=== PATIENT | male | born 1955 | race Caucasian/White ===

== ENCOUNTER 2016-08-30 12:30 | Outpatient (RCR) | payer MEDICARE, MEDICAID ==
[~2016-08-30 12:30] MED LIST: ACYCLOVIR400 MG ORAL; ASPIR 8181 MG ORAL; BACLOFEN10 MG ORAL; BARACLUDE0.5 MG ORAL; CLOPIDOGREL75 MG ORAL; ENALAPRIL MALEA10 MG ORAL; GENVOYA TABLET1 EACH PO; SINEMET CR 50/201 EA ORAL; TRIHEXYPHENIDYL2 MG ORAL
== END 2016-09-06 | disposition home or self-care (01) ==
LOC: PTY 12:30
DX: G20 Parkinson's disease (principal)

== ENCOUNTER 2016-09-30 12:30 | Outpatient (RCR) | payer MEDICARE, MEDICAID | END 2016-10-04 | disposition home or self-care (01) | LOC: PTY 12:30 | DX: G20 Parkinson's disease (principal); R13.12 Dysphagia, oropharyngeal phase; I10 Essential (primary) hypertension; Z86.73 Personal history of transient ischemic attack (TIA), and cerebral infarction without residual deficits; Z91.81 History of falling ==

== ENCOUNTER 2016-10-17 13:24 | Outpatient (RCR) | payer MEDICARE, MEDICAID | END 2016-11-04 | disposition home or self-care (01) | LOC: PTY 13:24 | DX: G20 Parkinson's disease (principal); Z91.81 History of falling; I10 Essential (primary) hypertension; Z86.73 Personal history of transient ischemic attack (TIA), and cerebral infarction without residual deficits; R13.12 Dysphagia, oropharyngeal phase; Z88.8 Allergy status to other drugs, medicaments and biological substances ==

== ENCOUNTER 2017-02-09 12:00 | Outpatient (RCR) | payer MEDICARE, MEDICAID | END 2017-03-06 | disposition home or self-care (01) | LOC: PTY 12:00 | DX: G20 Parkinson's disease (principal); Z91.81 History of falling; I10 Essential (primary) hypertension; Z86.73 Personal history of transient ischemic attack (TIA), and cerebral infarction without residual deficits; R47.1 Dysarthria and anarthria | CPT/HCPCS: 92507; 92523; 97110; 97162; G8978; G8979; G8996; G8997 ==

== ENCOUNTER → 2017-04-06 | Outpatient (RCR) | payer MEDICARE, MEDICAID | END | disposition home or self-care (01) | LOC: PTY 03-09 12:30 → STH 03-23 13:45 → PTY 03-30 12:29 | DX: G20 Parkinson's disease (principal); Z91.81 History of falling; I10 Essential (primary) hypertension; Z86.73 Personal history of transient ischemic attack (TIA), and cerebral infarction without residual deficits; R47.1 Dysarthria and anarthria | CPT/HCPCS: 92507; 97110; G9158; G9186 ==

== ENCOUNTER 2017-05-04 13:58 | Outpatient (RCR) | payer MEDICARE, MEDICAID | END 2017-05-06 | disposition home or self-care (01) | LOC: PTY 13:58 | DX: G20 Parkinson's disease (principal); R13.12 Dysphagia, oropharyngeal phase; R26.89 Other abnormalities of gait and mobility; Z91.81 History of falling | CPT/HCPCS: 97110; G8978; G8979 ==

== ENCOUNTER 2017-05-25 13:50 | Outpatient (RCR) | payer MEDICARE, MEDICAID | END 2017-06-06 | disposition home or self-care (01) | LOC: PTY 13:50 | DX: G20 Parkinson's disease (principal); R47.1 Dysarthria and anarthria; Z86.73 Personal history of transient ischemic attack (TIA), and cerebral infarction without residual deficits; I10 Essential (primary) hypertension; B20 Human immunodeficiency virus [HIV] disease ==

== ENCOUNTER 2017-07-05 14:15 | Outpatient (RCR) | payer MEDICARE, MEDICAID | END 2017-07-06 | disposition home or self-care (01) | LOC: PTY 14:15 | DX: G20 Parkinson's disease (principal); R47.1 Dysarthria and anarthria; I10 Essential (primary) hypertension; Z86.73 Personal history of transient ischemic attack (TIA), and cerebral infarction without residual deficits; H46.9 Unspecified optic neuritis ==

== ENCOUNTER 2017-07-27 13:00 | Outpatient (RCR) | payer MEDICARE, MEDICAID | END 2017-08-06 | disposition home or self-care (01) | LOC: PTY 13:00 | DX: G20 Parkinson's disease (principal) ==

== ENCOUNTER 2017-08-17 13:00 | Outpatient (RCR) | payer MEDICARE, MEDICAID | END 2017-09-06 | disposition home or self-care (01) | LOC: PTY 13:00 | DX: G20 Parkinson's disease (principal) | CPT/HCPCS: 97110; G8978; G8979 ==

== ENCOUNTER 2017-09-21 13:30 | Outpatient (RCR) | payer MEDICARE, MEDICAID | END 2017-10-04 | disposition home or self-care (01) | LOC: PTY 13:30 | DX: G20 Parkinson's disease (principal) ==

== ENCOUNTER 2017-10-20 14:45 | Outpatient (RCR) | payer MEDICAID, MEDICARE | END 2017-11-04 | disposition home or self-care (01) | LOC: PTY 14:45 | DX: G20 Parkinson's disease (principal) ==

== ENCOUNTER 2017-11-09 12:50 | Outpatient (RCR) | payer MEDICARE | END 2017-12-04 | disposition home or self-care (01) | LOC: PTY 12:50 | DX: G20 Parkinson's disease (principal) | CPT/HCPCS: 97110; G8978; G8979 ==

== ENCOUNTER 2017-12-14 12:07 | Outpatient (RCR) | payer MEDICARE, MEDICAID ==
[2017-12-26] MEDS ORDERED: SINEMET 25-1001 EAC1 ORAL ×2 (13:04→13:14)
== END 2018-01-04 | disposition home or self-care (01) ==
LOC: PTY 12:07
DX: G20 Parkinson's disease (principal)
CPT/HCPCS: 97110; G8978; G8979

== ENCOUNTER 2017-12-26 12:40 | Emergency (ER) | payer MEDICARE, MEDICAID ==
[~2017-12-26] VITALS: Ht 165.1 cm; Wt 59.0 kg
[2017-12-26 12:59] VITALS: BP 130/86
[2017-12-26] MEDS ORDERED: SINEMET 25-1001 EAC1 ORAL ×2 (13:04→13:14)
--- NOTE | 2017-12-26 13:17 | Emergency Room Report ---
History of Present Illness General Chief Complaint: Medication Refill Source: Patient, Caregiver Present Illness HPI 62-year-old male patient presents to ER brought in by photographer news for medication refill. Patient reports history of Parkinson's disease, currently taking carbidopa/levodopa 250 mg 2 tablets 3 times a day. patient reports has not been taking medication for the past 5 days because his prescription ran out. Patient reports that he has a follow-up appointment with his primary care provider on the of this month. Was unable to be seen earlier by primary care provider. Denies other acute complaints. Denies fever, chest pain, shortness breath, abdominal pain. Reports resting tremor has worsened during this time. Allergies: Coded Allergies: ABACAVIR (Verified Allergy, Unknown, ZIAGEN, 05/31/16) EFAVIRENZ (Verified Allergy, Unknown, SUSTIVA, 05/31/16) Patient History Past Medical History: see triage record Reviewed Nursing Documentation: PMH: Agreed; PSxH: Agreed Nursing Documentation-PMH Hx Cardiac Problems: No - HIV+ Hx Cancer: No Hx Gastrointestinal Problems: No Hx Neurological Problems: Yes - parkinsons Hx Cerebrovascular Accident: Yes - in 2014 Review of Systems All Other Systems: negative except mentioned in HPI Physical Exam Vital Signs Date Time Temp Pulse Resp B/P (MAP) Pulse Ox O2 Delivery O2 Flow Rate FiO2 12/26/17 12:59 98.4 101 19 130/86 96 Room Air 98.4 Sp02 EP Interpretation: reviewed, normal General Appearance: well appearing, no apparent distress, alert, GCS 15, non- toxic, other - resting tremor Head: normocephalic, atraumatic Eyes: bilateral eye normal inspection, bilateral eye PERRL ENT: hearing grossly normal, normal pharynx, no angioedema, normal voice, uvula midline, moist mucus membranes Neck: full range of motion Respiratory: lungs clear, normal breath sounds, no rhonchi, no respiratory distress, no accessory muscle use, no wheezing, speaking full sentences Cardiovascular #1: regular rate, rhythm, no edema Gastrointestinal: non tender, soft, no mass, non-distended, no guarding, no rebound Medical Decision Making PA Attestation Dr. Collins is my supervising Physician whom patient management has been discussed with. Diagnostic Impression: Primary Impression: Encounter for medication refill ER Course Pt. presents to the ED requesting prescription refill. Multiple differentials were considered. Vital signs: are WNL, pt. is afebrile ORDERS: PE benign, lungs clear to auscultation, no tenderness to palpation of the abdomen. patient denies acute complaints at this time. consult Dr. Collins, will provide medication refill for patient at this time. Informed patient ER does not normally provide refills of medications, needs follow-up with PCP as scheduled appointment. Will provide enough medication until appointment in 9 days. ER precautions given. do not believe patient is a danger to himself or others at this time. Informed patient ER cannot provide refills in the future; followup, management and prescription of long-term medications must be performed by primary care provider. patient observed ambulating independently in the ER. Patient discharged home in care of friend. DISCHARGE: Rx provided for carbidopa-Levodopa 25-100, take 2 tablets by mouth TID At this time pt is stable for d/c to home. Patient is resting comfortably, in no acute distress, nontoxic appearing, talking without difficulty. Patient to take medications as instructed Will provide with patient care instructions and any necessary prescriptions. Care plan and follow-up instructions provided. Patient instructed to follow-up with primary care provider in 3 - 5 days. Patient questions asked and answered. Patient reports understanding and agreement to treatment plan. ER precautions given. Patient instructed to return to ER immediately for any new or worsening of symptoms including but not limited to increasing SOB, persistent fever. - Please note that this Emergency Department Report was dictated using [employer] management assistant technology software, occasionally this can lead to erroneous entry secondary to interpretation by the dictation equipment. Last Vital Signs Date Time Temp Pulse Resp B/P (MAP) Pulse Ox O2 Delivery O2 Flow Rate FiO2 12/26/17 12:59 98.4 101 19 130/86 96 Room Air 98.4 Disposition: HOME, SELF-CARE Condition: Stable Scripts Carbidopa/Levodopa 25-100 Mg* (SINEMET 25-100 MG TABLET*) 1 Each Tablet 2 TAB ORAL THREE TIMES A DAY, #60 TAB Prov: Torres Neumann 12/26/17 Patient Instructions: Medicine Refill at the Emergency Department Additional Instructions: Followup with primary care provider at scheduled appointment. Take medications as directed. Patient advised ER does not normally provide prescription refills, follow-up with primary care provider. Patient questions asked and answered. ER precautions given, patient instructed to return to ER immediately for any new or worsening of symptoms. Torres Neumann December 26, 2017 13:17
[2017-12-26 13:20] VITALS: BP 130/86
== END 2017-12-26 14:07 | disposition home or self-care (01) ==
LOC: EMR 13:22
DX: Z76.0 Encounter for issue of repeat prescription (principal); G20 Parkinson's disease; Z88.8 Allergy status to other drugs, medicaments and biological substances; Z86.73 Personal history of transient ischemic attack (TIA), and cerebral infarction without residual deficits
CPT/HCPCS: 99283

== ENCOUNTER 2018-01-18 12:30 | Outpatient (RCR) | payer MEDICARE, MEDICAID ==
[~2018-01-18 12:30] MED LIST changes: +SINEMET 25-1001 EAC1 ORAL
== END 2018-02-03 | disposition home or self-care (01) ==
LOC: PTY 12:30
DX: G20 Parkinson's disease (principal)

== ENCOUNTER 2018-02-16 12:30 | Outpatient (RCR) | payer MEDICARE, MEDICAID | END 2018-03-06 | disposition home or self-care (01) | LOC: PTY 12:30 | DX: G20 Parkinson's disease (principal); I10 Essential (primary) hypertension; Z86.73 Personal history of transient ischemic attack (TIA), and cerebral infarction without residual deficits ==

== ENCOUNTER 2018-03-08 13:00 | Outpatient (RCR) | payer MEDICARE, MEDICAID | END 2018-04-06 | disposition home or self-care (01) | LOC: PTY 13:00 | DX: G20 Parkinson's disease (principal); I10 Essential (primary) hypertension; Z86.73 Personal history of transient ischemic attack (TIA), and cerebral infarction without residual deficits | CPT/HCPCS: 97110; G8978; G8979 ==

== ENCOUNTER 2018-04-12 13:07 | Outpatient (RCR) | payer MEDICARE, MEDICAID | END 2018-05-06 | disposition home or self-care (01) | LOC: PTY 13:07 | DX: G20 Parkinson's disease (principal) ==

== ENCOUNTER 2018-05-10 12:30 | Outpatient (RCR) | payer MEDICARE, MEDICAID | END 2018-06-06 | disposition home or self-care (01) | LOC: PTY 12:30 | DX: G20 Parkinson's disease (principal); I10 Essential (primary) hypertension; Z86.73 Personal history of transient ischemic attack (TIA), and cerebral infarction without residual deficits | CPT/HCPCS: 97110; G8979; G8980 ==

== ENCOUNTER 2019-10-30 23:27 | Emergency (ER) | payer MEDICAID, MEDICARE ==
[~2019-10-30] VITALS: Ht 162.6 cm; Wt 56.7 kg
[2019-10-30 23:47] VITALS: BP 142/88
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
[2019-10-30] MEDS ORDERED: FENOFIBRATE54 MG ORAL (23:56)
--- NOTE | 2019-10-31 00:05 | NUR ---
ED Nurse Note: IV line established. Blood and urine specimen collected and sent to lab.
--- NOTE | 2019-10-31 00:13 | Emergency Room Report ---
History of Present Illness General Chief Complaint: General Complaint Present Illness HPI Patient is a 64-year-old male who presents after increased difficulty with urination as well as dry mouth. Patient reportedly had been unable to take his medications several days ago. He had recently gotten refills of these. He reports have increased thirst and increased weakness. Denies fever. No vomiting. Allergies: Coded Allergies: ABACAVIR (Verified Allergy, Unknown, ZIAGEN, 05/31/16) EFAVIRENZ (Verified Allergy, Unknown, SUSTIVA, 05/31/16) COVID-19 Screening Contact w/high risk pt: No Recent Travel to affected area: No Experienced COVID-19 symptoms?: No Patient History Past Medical History: see triage record, CVA/TIA, HIV Reviewed Nursing Documentation: PMH: Agreed; PSxH: Agreed Nursing Documentation-PMH Hx Cardiac Problems: No - HIV+ Hx Cancer: No Hx Gastrointestinal Problems: No Hx Neurological Problems: Yes - parkinsons Hx Cerebrovascular Accident: Yes - in 2014 Review of Systems All Other Systems: negative except mentioned in HPI Physical Exam Vital Signs Date Time Temp Pulse Resp B/P (MAP) Pulse Ox O2 Delivery O2 Flow Rate FiO2 10/30/19 23:33 97.9 115 18 152/104 (120) 95 Room Air Sp02 EP Interpretation: reviewed, normal General Appearance: alert, GCS 15, Chronically Ill Head: atraumatic ENT: normal ENT inspection, hearing grossly normal, normal voice Neck: normal inspection, full range of motion, supple, no bony tend Respiratory: normal inspection, lungs clear, normal breath sounds, no respiratory distress, no retraction, no wheezing Cardiovascular #1: regular rate, rhythm, no edema Gastrointestinal: normal inspection, normal bowel sounds, non tender, soft, no guarding, no hernia Genitourinary: no CVA tenderness Musculoskeletal: normal inspection, back normal, normal range of motion Neurologic: alert, script manager III-XII nml as tested, oriented x3, responsive, normal inspection, other - slow speech Psychiatric: normal inspection, judgement/insight normal, mood/affect normal, other Medical Decision Making Diagnostic Impression: Primary Impression: HIV (human immunodeficiency virus infection) Additional Impressions: parkinsonson disease, advanced Dehydration ER Course Patient presented after increased lethargy. Differential diagnosis include was not limited to anemia, dehydration, medication reaction among others. Because of complexity of patient's case laboratory tests and imaging studies were ordered. Patient's laboratory testing was unremarkable. He was given IV Ativan. Patient was noted to have gradual improvement over time. Patient was noted to be stable for discharge and was currently in possession of his medications. travel services professional consult was obtained. Patient will be discharged. Labs Test 10/30/19 23:58 White Blood Count 8.9 K/UL (4.8-10.8) Red Blood Count 4.67 M/UL (4.70-6.10) Hemoglobin 14.2 G/DL (14.2-18.0) Hematocrit 41.2 % (42.0-52.0) Mean Corpuscular Volume 88 FL (80-99) Mean Corpuscular Hemoglobin 30.5 PG (27.0-31.0) Mean Corpuscular Hemoglobin Concent 34.5 G/DL (32.0-36.0) Red Cell Distribution Width 12.6 % (11.6-14.8) Platelet Count 366 K/UL (150-450) Mean Platelet Volume 5.1 FL (6.5-10.1) Neutrophils (%) (Auto) 58.9 % (45.0-75.0) Lymphocytes (%) (Auto) 29.0 % (20.0-45.0) Monocytes (%) (Auto) 8.8 % (1.0-10.0) Eosinophils (%) (Auto) 2.8 % (0.0-3.0) Basophils (%) (Auto) 0.5 % (0.0-2.0) Urine Color Yellow Urine Appearance Clear Urine pH 5 (4.5-8.0) Urine Specific [place] 1.025 (1.005-1.035) Urine Protein 2+ (NEGATIVE) Urine Glucose (UA) Negative (NEGATIVE) Urine Ketones 1+ (NEGATIVE) Urine Blood Negative (NEGATIVE) Urine Nitrite Negative (NEGATIVE) Urine Bilirubin 1+ (NEGATIVE) Urine Ictotest Negative (NEGATIVE) Urine Urobilinogen 1 MG/DL (0.0-1.0) Urine Leukocyte Esterase 1+ (NEGATIVE) Urine RBC 0-2 /HPF (0 - 0) Urine WBC 0-2 /HPF (0 - 0) Urine Squamous Epithelial Cells Few /LPF (NONE/OCC) Urine Bacteria Few /HPF (NONE) Sodium Level 145 MMOL/L (136-145) Potassium Level 3.6 MMOL/L (3.5-5.1) Chloride Level 106 MMOL/L (98-107) Carbon Dioxide Level 23 MMOL/L (21-32) Anion Gap 16 mmol/L (5-15) Blood Urea Nitrogen 22 mg/dL (7-18) Creatinine 1.2 MG/DL (0.55-1.30) Estimat Glomerular Filtration Rate > 60 mL/min (>60) Glucose Level 146 MG/DL (74-106) Calcium Level 9.1 MG/DL (8.5-10.1) Total Bilirubin 0.4 MG/DL (0.2-1.0) Aspartate Amino Transf (AST/SGOT) 16 U/L (15-37) Alanine Aminotransferase (ALT/SGPT) 12 U/L (12-78) Alkaline Phosphatase 51 U/L (46-116) Total Creatine Kinase 61 U/L (26-308) Total Protein 8.1 G/DL (6.4-8.2) Albumin 3.9 G/DL (3.4-5.0) Globulin 4.2 g/dL Albumin/Globulin Ratio 0.9 (1.0-2.7) Serum Alcohol < 3 mg/dL EKG Diagnostic Results Rate: normal Rhythm: NSR Last Vital Signs Date Time Temp Pulse Resp B/P (MAP) Pulse Ox O2 Delivery O2 Flow Rate FiO2 10/30/19 23:33 97.9 115 18 152/104 (120) 95 Room Air Status: improved Disposition: HOME, SELF-CARE Condition: Stable Referrals: NON PHYSICIAN (PCP) Morris Collins MD Oct 31, 2019 00:13
[2019-10-31 00:15] LABS: BASOPHILS % (AUTO) 0.5 % (0.0-2.0); EOSINOPHILS % (AUTO) 2.8 % (0.0-3.0); HEMATOCRIT 41.2 % (42.0-52.0); HEMOGLOBIN 14.2 G/DL (14.2-18.0); MEAN CORPUSCULAR VOLUME 88 FL (80-99); MONOCYTES % (AUTO) 8.8 % (1.0-10.0); NEUTROPHILS % (AUTO) 58.9 % (45.0-75.0); PLATELET COUNT 366 K/UL (150-450); RED BLOOD COUNT 4.67 M/UL (4.70-6.10); RED CELL DISTRIBUTION WIDTH 12.6 % (11.6-14.8); WHITE BLOOD COUNT 8.9 K/UL (4.8-10.8)
[2019-10-31] MEDS ORDERED: LORazepam Inj 2mg/ml 1ml IV ONE (00:15)
[2019-10-31 00:19] LABS: APPEARANCE,URINE CLEAR; BILIRUBIN, URINE 1+ (NEGATIVE); GLUCOSE, URINE (UA) NEGATIVE (NEGATIVE); KETONES,URINE 1+ (NEGATIVE); LEUKOCYTE ESTERASE ,URINE 1+ (NEGATIVE); NITRITE,URINE NEGATIVE (NEGATIVE); PH,URINE 5 (4.5-8.0); PROTEIN,URINE 2+ (NEGATIVE); UROBILINOGEN,URINE 1 MG/DL (0.0-1.0)
[2019-10-31 00:26] LABS: ANION GAP 16 mmol/L (5-15); BLOOD UREA NITROGEN 22 mg/dL (7-18); CALCIUM 9.1 MG/DL (8.5-10.1); CARBON DIOXIDE 23 MMOL/L (21-32); CHLORIDE 106 MMOL/L (98-107); CREATININE 1.2 MG/DL (0.55-1.30); POTASSIUM 3.6 MMOL/L (3.5-5.1); SODIUM 145 MMOL/L (136-145)
[2019-10-31 00:32] LABS: ALANINE AMINOTRANSFERASE 12 U/L (12-78); ALBUMIN 3.9 G/DL (3.4-5.0); ALBUMIN/GLOBULIN RATIO 0.9 (1.0-2.7); ALKALINE PHOSPHATASE 51 U/L (46-116); ASPARTATE AMINO TRANSFERASE 16 U/L (15-37); BILIRUBIN,TOTAL 0.4 MG/DL (0.2-1.0); COLOR,URINE YELLOW; CREATINE KINASE 61 U/L (26-308)
[2019-10-31 01:00] VITALS: BP 120/69
[2019-10-31 03:00] VITALS: BP 125/77
[2019-10-31 05:00] VITALS: BP 121/72
--- NOTE | 2019-10-31 05:49 | NUR ---
ED Nurse Note: Patient was requesting to see a case management social worker.
--- NOTE | 2019-10-31 07:02 | NUR ---
ED Nurse Note: Report received from YARITZA Brown. Pt sleeping comfortably in bed with no signs of distress. vitals stable as documented. Respirations even and unlabored on room air.
--- NOTE | 2019-10-31 07:50 | NUR ---
ED Nurse Note: SW @ bedside
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
--- NOTE | 2019-10-31 09:19 | NUR ---
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
--- NOTE | 2019-10-31 10:21 | NUR ---
ED Nurse Note: ATTEMPTED TO CALL PT.'S FRIENDS TO PICK HIM UP BUT NO ANSWER. HEEL SEAT LASTER GAVE HIM RESOURCES
[2019-10-31 11:00] VITALS: BP 124/85
--- NOTE | 2019-10-31 11:00 | NUR ---
ER DISCHARGE NOTE: Patient is cleared to be discharged per ERMD, pt is aox4, on room air, with stable vital signs. pt was given dc and prescription instructions, pt was able to verbalize understanding, pt id band and iv site removed without complications. pt is able to ambulate with steady gait. pt took all belongings. [facility] and pt. was provided tap card. pt. was assisted by CHEO Holt to the bus stop. no s/s of acute distress noted
== END 2019-10-31 11:00 | disposition home or self-care (01) ==
LOC: EMR 23:58
DX: R53.1 Weakness (principal); G20 Parkinson's disease; E86.0 Dehydration; Z21 Asymptomatic human immunodeficiency virus [HIV] infection status; Z86.73 Personal history of transient ischemic attack (TIA), and cerebral infarction without residual deficits; Z88.8 Allergy status to other drugs, medicaments and biological substances
CPT/HCPCS: 36415; 80053; 81001; 82550; 85025; 96361; 96374; 99284; G0480; J7030

== ENCOUNTER 2019-10-31 11:58 | Inpatient (IN) | payer MEDICARE, MEDICAID ==
[~2019-10-31] VITALS: Ht 165.1 cm; Wt 55.6 kg
[~2019-10-31 11:58] MED LIST changes: +FENOFIBRATE54 MG ORAL
[2019-10-31 12:12] VITALS: BP 141/99
--- NOTE | 2019-10-31 12:14 | Emergency Room Report ---
History of Present Illness General Chief Complaint: Fall Source: Patient Present Illness HPI Disclaimer: Please note that this report is being documented using [employer] technology. This can lead to erroneous entry secondary to incorrect interpretation by the dictating instrument. HPI: 64-year-old male history of parkinsonism, HIV presents for evaluation after a fall. Patient was seen in the emergency department earlier this morning by the previous provider. Originally came in for medication refill then noted weakness and was requesting placement. He was value by social work and discharge planning and given resources to follow-up on an outpatient basis. He left the emergency department was waiting for a bus however he stated that he was returning to check in again feeling weak. On his way back he states he had a fall from standing causing him to fall onto his left side. He is noting an abrasion over the left elbow and pain there as well as an abrasion over the left hinduism. He denies loss of consciousness or seizure. Not taking any blood thinners. States tetanus was updated last month. He notes he is unable to care himself and requesting placement. PMH: Parkinsonism, HIV PSH: Reviewed in chart Allergies: See chart Social Hx: Denies Allergies: Coded Allergies: ABACAVIR (Verified Allergy, Unknown, ZIAGEN, 05/31/16) EFAVIRENZ (Verified Allergy, Unknown, SUSTIVA, 05/31/16) COVID-19 Screening Contact w/high risk pt: No Recent Travel to affected area: No Experienced COVID-19 symptoms?: No Nursing Documentation-PMH Hx Cardiac Problems: No - HIV+ Hx Cancer: No Hx Gastrointestinal Problems: No Hx Neurological Problems: Yes - parkinsons Hx Cerebrovascular Accident: Yes - in 2014 Review of Systems All Other Systems: negative except mentioned in HPI Physical Exam General: Awake and alert, no acute distress HEENT: Normocephalic, abrasion over the right hinduism. Small hematoma. No tenderness or soft tissue swelling over the facial bones. EOMI. PERRLA. No septal hematoma. No oral lacerations. Dentition is intact. No malocclusion Neck: Supple, trachea midline. Arrives without cervical collar Chest Wall: No tenderness, no deformity, no crepitus CV: RRR. S1 and S2 normal. No murmur appreciated Resp: Normal work of breathing. No cough, wheezing or crackles appreciated Abd: Soft, nontender, nondistended Skin: Right hinduism abrasion and small hematoma. Abrasion of the left forearm is hemostatic. MSK: Normal tone and bulk. No obvious deformity. Arms held in contracture. Ambulates with use of walker Neuro: Awake and alert. Mentating appropriately. Arms held in contracture Medical Decision Making Diagnostic Impression: Primary Impression: Frequent falls Additional Impressions: Multiple injuries due to trauma Weakness ER Course 64-year-old male presents for fall with head injury but no loss of consciousness. Patient was seen earlier in the emergency department labs were largely unremarkable. He was complaining of weakness and requesting placement. Will obtain a CT scan of the head to rule out intracranial injury and a x-ray of the left elbow to evaluate for fracture. Tetanus was updated last month according to patient. Does not require repeat labs as we have the previous results from this morning. He will require admission. Other X-Ray Diagnostic Results Other X-Ray Diagnostic Results : X-Ray ordered: Left elbow # of Views/Limited Vs Complete: Complete Indication: Pain EP Interpretation: Yes Interpretation: no dislocation, no soft tissue swelling, no fractures Impression: No acute disease Electronically Signed by: Electronically signed by Dr. Jv Gallegos CT/MRI/US Diagnostic Results CT/MRI/US Diagnostic Results : Impression CT Head Impression: No acute intracranial bleed, mass effect or edema. Old lacunar infarcts bilateral basal ganglia. Mild atrophy of the brain. Nonspecific white matter hypoattenuation probably due to chronic small vessel disease. Reevaluation Impression No acute findings on head CT. No evidence of fracture or dislocation on elbow x -rays. Patient will be admitted to panel physician for evaluation and further treatment of his weakness, and inability to ambulate safely. Disposition: ADMITTED INPATIENT Condition: Serious Jv Gallegos MD Oct 31, 2019 12:14
--- NOTE | 2019-10-31 13:06 | Diagnostic Imaging Report ---
Indication: Headache. Head trauma Technique: Contiguous 5 mm thick transaxial imaging of the head obtained in a Siemens Sensation [address] scanner. Soft tissue and bone windows generated. Automatic Exposure Control was utilized. Total Dose length Product (DLP): 2171.1mGycm CT Dose Index Volume (CTDIvol): 106.8 mGy Comparison: 03/11/2016 Findings: There is mild prominence of the ventricles, basal cisterns, and cerebral sulci consistent with atrophy. Mild, nonspecific, white matter hypoattenuation is noted throughout the brain consistent with chronic small vessel disease. There are small cystic foci within the basal ganglia bilaterally consistent with old lacunar infarcts. There is no midline shift, edema, acute hemorrhage, mass effect, or abnormal extra-axial fluid collections. Bones are unremarkable. Impression: No acute intracranial bleed, mass effect or edema. Old lacunar infarcts bilateral basal ganglia. Mild atrophy of the brain. Nonspecific white matter hypoattenuation probably due to chronic small vessel disease. The CT scanner at [facility] is accredited by the [employer] and the scans are performed using dose optimization techniques as appropriate to a performed exam including Automatic Exposure control.
--- NOTE | 2019-10-31 13:08 | Diagnostic Imaging Report ---
Indication: Left elbow pain Findings: 3 views of the left elbow were obtained. No acute fractures, malalignment, erosions or periostitis are identified. There is mild posterior soft tissue swelling. There is no joint effusion appreciated. Generalized osteopenia noted. Impression: No acute injury
[2019-10-31] MEDS ORDERED: Zolpidem 5mg tab ORAL PRN (13:45)
[2019-10-31] MEDS ORDERED: Miralax 17gm pkt ORAL PRN (13:45)
[2019-10-31 14:02] VITALS: BP 137/80
--- NOTE | 2019-10-31 14:36 | Consultation ---
History of Present Illness General Date patient seen: Oct 31, 2019 Chief Complaint: Multiple Trauma/Fall Present Illness HPI 64-year-old male history of parkinsonism, HIV presented with CC of multiple falls. He had a fall from standing causing him to fall onto his left side. He has an abrasion over the left elbow and pain there as well as an abrasion over the left scientology. he is unable to care himself and requesting placement. Allergies: Coded Allergies: ABACAVIR (Verified Allergy, Unknown, ZIAGEN, 05/31/16) EFAVIRENZ (Verified Allergy, Unknown, SUSTIVA, 05/31/16) Medication History Scheduled Acyclovir* (Acyclovir*), 800 MG ORAL DAILY, (Reported) Aspirin* (Aspir 81*), 81 MG ORAL DAILY, (Reported) Baclofen* (Baclofen*), 10 MG ORAL EVERY 8 HOURS, (Reported) Carbidopa/Levodopa 25-100 Mg* (Sinemet 25-100 Mg Tablet*), 2 TAB ORAL THREE TIMES A DAY Clopidogrel* (Clopidogrel*), 75 MG ORAL DAILY, (Reported) Elviteg/Lesley/Emtric/Tenofo Ala (Genvoya Tablet), 1 EACH PO DAILY, (Reported) Enalapril Maleate* (Enalapril Maleate*), 10 MG ORAL DAILY, (Reported) Entecavir* (Baraclude*), 1 MG ORAL DAILY, (Reported) Fenofibrate (Fenofibrate), 54 MG ORAL DAILY, (Reported) Levodopa/Carbidopa (Carbidopa-Levo ER 50-200 Tab), 1 TAB ORAL TWICE A DAY, ( Reported) Trihexyphenidyl Hcl* (Artane*), 2 MG ORAL TWICE A DAY, (Reported) Discontinued Medications Carbidopa/Levodopa 25-100 Mg* (Sinemet 25-100 Mg Tablet*), 1 TAB ORAL THREE TIMES A DAY, (Reported) Discontinued Reason: Medication dose changed Patient History Healthcare decision maker Resuscitation status Advanced Directive on File Past Medical/Surgical History Past Medical/Surgical History: (1) HIV (human immunodeficiency virus infection) (2) Parkinson disease (3) Dysarthria due to old lacunar stroke (4) Homelessness Review of Systems All Other Systems: negative except mentioned in HPI Physical Exam General Appearance: WD/WN, no apparent distress Lines, tubes and drains: peripheral HEENT: normocephalic, atraumatic Neck: non-tender, supple Respiratory/Chest: chest wall non-tender, lungs clear Breasts: no masses Cardiovascular/Chest: normal peripheral pulses, no JVD Abdomen: non tender Genitourinary/Rectal: normal genital exam Last 24 Hour Vital Signs Date Time Temp Pulse Resp B/P (MAP) Pulse Ox O2 Delivery O2 Flow Rate FiO2 10/31/19 12:12 84 20 Room Air 10/31/19 12:12 98.0 84 20 141/99 99 Room Air 10/31/19 12:04 98.1 84 20 141/99 (113) 99 Room Air Height (Feet): 5 Height (Inches): 5.00 Weight (Pounds): 130 Medications Current Medications Medications (Trade) Dose Ordered Sig/Brandon Route PRN Reason Start Time Stop Time Status Last Admin Dose Admin Acetaminophen (Tylenol) 650 mg Q4H PRN ORAL fever 10/31/19 13:45 11/30/19 13:44 Baclofen (Lioresal) 10 mg EVERY 8 HOURS ORAL 10/31/19 22:00 11/30/19 21:59 Carbidopa/Levodopa (Sinemet 25/100) 2 tab THREE TIMES A DAY ORAL 10/31/19 18:00 11/30/19 17:59 Dextrose (Dextrose 50%) 25 ml Q30M PRN IV Hypoglycemia 10/31/19 13:45 01/29/20 13:44 Dextrose (Dextrose 50%) 50 ml Q30M PRN IV Hypoglycemia 10/31/19 13:45 01/29/20 13:44 Enalapril Maleate (Vasotec) 10 mg DAILY ORAL 11/01/19 09:00 12/01/19 08:59 Ondansetron HCl (Zofran) 4 mg Q6H PRN IVP Nausea & Vomiting 10/31/19 13:45 11/30/19 13:44 Polyethylene Glycol (Miralax) 17 gm HSPRN PRN ORAL Constipation 10/31/19 13:45 11/30/19 13:44 Zolpidem Tartrate (Ambien) 5 mg HSPRN PRN ORAL Insomnia 10/31/19 13:45 11/07/19 13:44 Assessment/Plan Problem List: (1) Frequent falls ICD Codes: R29.6 - Repeated falls SNOMED: 076073098 (2) Parkinson disease ICD Codes: G20 - Parkinson's disease SNOMED: 88158377 (3) HIV (human immunodeficiency virus infection) ICD Codes: Z21 - Asymptomatic human immunodeficiency virus [HIV] infection status SNOMED: 12892275 (4) Homelessness ICD Codes: Z59.0 - Homelessness SNOMED: 58980281 (5) Cerebral vascular disease ICD Codes: I67.9 - Cerebrovascular disease, unspecified SNOMED: 40053752 Assessment/Plan: risk stratification for recurrent CVA neurology evaluation pt/ot ID to manage HIV meds continue and adjust Parkinson meds social service consult Leti Cruz MD Oct 31, 2019 14:36
[2019-10-31 14:59] VITALS: BP 130/87
[2019-10-31] MEDS: Levodopa/Carbidopa 25/100 tab ORAL SCH (17:18)
[2019-10-31] MEDS ORDERED: Levodopa/Carbidopa 25/100 tab ORAL SCH (18:00)
--- NOTE | 2019-10-31 18:51 | History & Physical ---
History and Physical History & Physicial Dictated for Int Med-DR Garcia no. [id number] Talat Knutson MD Oct 31, 2019 18:51
[2019-10-31 20:00] VITALS: BP 139/71
[2019-11-01 06:19] LABS: BASOPHILS % (AUTO) 0.5 % (0.0-2.0); EOSINOPHILS % (AUTO) 2.4 % (0.0-3.0); HEMOGLOBIN 12.9 G/DL (14.2-18.0); LYMPHOCYTES % (AUTO) 31.5 % (20.0-45.0); MEAN CORPUSCULAR VOLUME 90 FL (80-99); MONOCYTES % (AUTO) 8.6 % (1.0-10.0); PLATELET COUNT 295 K/UL (150-450); RED BLOOD COUNT 4.12 M/UL (4.70-6.10); RED CELL DISTRIBUTION WIDTH 12.7 % (11.6-14.8); WHITE BLOOD COUNT 8.6 K/UL (4.8-10.8)
[2019-11-01 06:54] LABS: ALANINE AMINOTRANSFERASE 6 U/L (12-78); ALBUMIN 3.1 G/DL (3.4-5.0); ALBUMIN/GLOBULIN RATIO 0.9 (1.0-2.7); ALKALINE PHOSPHATASE 44 U/L (46-116); ANION GAP 10 mmol/L (5-15); ASPARTATE AMINO TRANSFERASE 10 U/L (15-37); BILIRUBIN,TOTAL 0.2 MG/DL (0.2-1.0); BLOOD UREA NITROGEN 24 mg/dL (7-18); CALCIUM 8.5 MG/DL (8.5-10.1); CARBON DIOXIDE 23 MMOL/L (21-32); CHLORIDE 109 MMOL/L (98-107); CHOLESTEROL 181 MG/DL (< 200); HDL CHOLESTEROL 33 MG/DL (40-60); SODIUM 141 MMOL/L (136-145); TRIGLYCERIDES 82 MG/DL (30-150)
[2019-11-01 08:00] VITALS: BP 122/90
--- NOTE | 2019-11-01 08:13 | History and Physical Report ---
DATE OF ADMISSION: 10/31/2019 CHIEF COMPLAINT: The patient is a 64-year-old male who presents with a chief complaint of generalized weakness and fall injury. HISTORY OF PRESENT ILLNESS: Began this morning. The patient began to experience generalized weakness. The patient has suffered a slip and fall injury. The patient fell striking his left elbow and left druze. The patient presented to [facility]. The patient was admitted with generalized weakness and slip and fall injury. REVIEW OF SYSTEMS: CONSTITUTIONAL: The patient denies weight loss or weight gain. The patient denies fevers or chills. HEENT: The patient denies ear or throat pain. The patient denies headache. CARDIOVASCULAR: The patient denies palpitations or chest pain. CHEST: The patient denies wheeze or shortness of breath. ABDOMEN: The patient denies nausea, vomiting, diarrhea, or constipation. GENITOURINARY: The patient denies dysuria or increased frequency urination. NEUROMUSCULAR: The patient has history of Parkinson's. The patient complains of generalized weakness. The patient denies seizures. PAST MEDICAL HISTORY: Significant for: 1. Parkinson disease. 2. Cerebrovascular disease, status post transient ischemic attack. 3. Hypertension. 4. Hypercholesterolemia. 5. HIV. PAST SURGICAL HISTORY: The patient denies. CURRENT MEDICATIONS: 1. Acyclovir 400 mg p.o. daily. 2. Aspirin 81 mg p.o. daily. 3. Baclofen 10 mg p.o. q.8 h. p.r.n. 4. Sinemet 25/100 two tablets p.o. three times daily. 5. Clopidogrel 75 mg p.o. daily. 6. Genvoya one tablet p.o. daily. 7. Enalapril 10 mg p.o. daily. 8. Entecavir 0.5 mg two tablets p.o. daily. 9. Fenofibrate 54 mg p.o. daily. 10. Levodopa/carbidopa ER 50/200 one tablet p.o. twice daily. 11. Artane 2 mg p.o. twice daily. ALLERGIES: and efavirenz. SOCIAL HISTORY: The patient is single and lives alone. The patient denies tobacco or alcohol use. PHYSICAL EXAMINATION: VITAL SIGNS: Temperature 98.1, respirations 20, pulse 84, and blood pressure 141/99. GENERAL: The patient is a well-developed and well-nourished male, in no apparent distress. HEENT: Eyes, pupils are equal and responsive to light and accommodation. Extraocular movements are intact. NECK: Supple without lymphadenopathy. CHEST: Lungs are clear to auscultation bilaterally without wheezes or rales. CARDIOVASCULAR: Regular rhythm and rate. S1 and S2 are normal without murmurs, rubs, or gallops. ABDOMEN: Soft, nontender, and nondistended. Positive bowel sounds. No evidence of hepatosplenomegaly. Currently, no rebound or guarding noted. EXTREMITIES: Negative for clubbing, cyanosis, or edema. RECTAL/GENITAL: Not performed. NEUROLOGIC: Cranial nerves II through XII are grossly intact without focal deficits. LABORATORY AND DIAGNOSTIC DATA: WBC 8.9, hemoglobin 14.2, hematocrit 41.2, and platelets 366,000. Sodium 145, potassium 3.6, chloride 106, CO2 23, BUN 22, creatinine 1.2, and glucose 146. An x-ray of the left elbow failed to demonstrate fracture or acute injury. A CT scan of the brain was reported as no acute intracranial bleed, mass effect, or edema. ASSESSMENT: This is a 64-year-old male. 1. Generalized weakness. 2. Contusion of the left elbow. 3. Contusion of the left druze. 4. Parkinson disease. 5. Cerebrovascular disease. 6. Hypertension. 7. Hypercholesterolemia. 8. HIV. TREATMENT: 1. Generalized weakness. This may be secondary to transient ischemic attack. An initial CT scan of the brain was reported as within normal limits. 2. Parkinson disease. Continue Sinemet as above. 3. Abrasion of the left elbow and left druze. This was evaluated in the emergency room. 4. Hypertension. Continue enalapril as above. 5. Hypercholesterolemia. Continue fenofibrate as above. 6. HIV. Continue Genvoya and entecavir as above. Talat Knutson M.D. DR: HAIDER JOB#: [id number] CC:
[2019-11-01] MEDS: Levodopa/Carbidopa 25/100 tab ORAL SCH ×4 (08:20→21:53)
--- NOTE | 2019-11-01 11:43 | Consultation ---
History of Present Illness General Date patient seen: Nov 01, 2019 Time patient seen: 11:42 Chief Complaint: Multiple Trauma/Fall Referring physician: dr Cruz Reason for Consultation: HIV Present Illness HPI The patient is a 64-year-old male who was admitted for weakness and fall injury. Pt has hx of HIV and ID cons was requested for further eval of the pt, REVIEW OF SYSTEMS: CONSTITUTIONAL: 10 point review was done PAST MEDICAL HISTORY: 1. Parkinson disease. 2. Cerebrovascular disease, status post transient ischemic attack. 3. Hypertension. 4. Hypercholesterolemia. 5. HIV./ Hep B . CURRENT MEDICATIONS: 1. Acyclovir 400 mg p.o. daily. 2.Entecavir 0.5 mg two tablets p.o. daily. 3. Genvoya ALLERGIES: Abacavir and efavirenz. SOCIAL HISTORY: The patient is single and lives alone. The patient denies tobacco or alcohol use. Allergies: Coded Allergies: ABACAVIR (Verified Allergy, Unknown, ZIAGEN, 05/31/16) EFAVIRENZ (Verified Allergy, Unknown, SUSTIVA, 05/31/16) Medication History Scheduled Acyclovir* (Acyclovir*), 800 MG ORAL DAILY, (Reported) Aspirin* (Aspir 81*), 81 MG ORAL DAILY, (Reported) Baclofen* (Baclofen*), 10 MG ORAL EVERY 8 HOURS, (Reported) Carbidopa/Levodopa 25-100 Mg* (Sinemet 25-100 Mg Tablet*), 2 TAB ORAL THREE TIMES A DAY Clopidogrel* (Clopidogrel*), 75 MG ORAL DAILY, (Reported) Elviteg/Lesley/Emtric/Tenofo Ala (Genvoya Tablet), 1 EACH PO DAILY, (Reported) Enalapril Maleate* (Enalapril Maleate*), 10 MG ORAL DAILY, (Reported) Entecavir* (Baraclude*), 1 MG ORAL DAILY, (Reported) Fenofibrate (Fenofibrate), 54 MG ORAL DAILY, (Reported) Levodopa/Carbidopa (Carbidopa-Levo ER 50-200 Tab), 1 TAB ORAL TWICE A DAY, ( Reported) Trihexyphenidyl Hcl* (Artane*), 2 MG ORAL TWICE A DAY, (Reported) Discontinued Medications Carbidopa/Levodopa 25-100 Mg* (Sinemet 25-100 Mg Tablet*), 1 TAB ORAL THREE TIMES A DAY, (Reported) Discontinued Reason: Medication dose changed Patient History Healthcare decision maker Resuscitation status Full Code Advanced Directive on File Physical Exam Lines, tubes and drains: PICC HEENT: anicteric Neck: supple Respiratory/Chest: lungs clear Cardiovascular/Chest: regular rhythm Abdomen: soft Last 24 Hour Vital Signs Date Time Temp Pulse Resp B/P (MAP) Pulse Ox O2 Delivery O2 Flow Rate FiO2 11/01/19 09:00 Room Air 11/01/19 08:20 122/90 11/01/19 08:00 97.3 87 18 122/90 (101) 99 10/31/19 21:00 Room Air 10/31/19 20:00 98.4 94 22 139/71 (93) 96 10/31/19 16:35 Room Air 10/31/19 14:59 97.3 89 16 130/87 (101) 97 10/31/19 14:35 98.2 75 15 137/80 99 Room Air 10/31/19 14:02 98.2 75 15 137/80 99 Room Air 10/31/19 12:12 84 20 Room Air 10/31/19 12:12 98.0 84 20 141/99 99 Room Air 10/31/19 12:04 98.1 84 20 141/99 (113) 99 Room Air Intake and Output 10/31/19 11/01/19 19:00 07:00 Intake Total 360 ml Output Total 300 ml Balance 360 ml -300 ml Intake Oral 360 ml Output Urine Total 300 ml # Voids 1 Laboratory Tests Test 11/01/19 04:50 White Blood Count 8.6 K/UL (4.8-10.8) Red Blood Count 4.12 M/UL (4.70-6.10) L Hemoglobin 12.9 G/DL (14.2-18.0) L Hematocrit 37.0 % (42.0-52.0) L Mean Corpuscular Volume 90 FL (80-99) Mean Corpuscular Hemoglobin 31.3 PG (27.0-31.0) H Mean Corpuscular Hemoglobin Concent 34.9 G/DL (32.0-36.0) Red Cell Distribution Width 12.7 % (11.6-14.8) Platelet Count 295 K/UL (150-450) Mean Platelet Volume 5.5 FL (6.5-10.1) L Neutrophils (%) (Auto) 57.0 % (45.0-75.0) Lymphocytes (%) (Auto) 31.5 % (20.0-45.0) Monocytes (%) (Auto) 8.6 % (1.0-10.0) Eosinophils (%) (Auto) 2.4 % (0.0-3.0) Basophils (%) (Auto) 0.5 % (0.0-2.0) Sodium Level 141 MMOL/L (136-145) Potassium Level 4.0 MMOL/L (3.5-5.1) Chloride Level 109 MMOL/L (98-107) H Carbon Dioxide Level 23 MMOL/L (21-32) Anion Gap 10 mmol/L (5-15) Blood Urea Nitrogen 24 mg/dL (7-18) H Creatinine 1.0 MG/DL (0.55-1.30) Estimat Glomerular Filtration Rate > 60 mL/min (>60) Glucose Level 89 MG/DL (74-106) Calcium Level 8.5 MG/DL (8.5-10.1) Total Bilirubin 0.2 MG/DL (0.2-1.0) Aspartate Amino Transf (AST/SGOT) 10 U/L (15-37) L Alanine Aminotransferase (ALT/SGPT) 6 U/L (12-78) L Alkaline Phosphatase 44 U/L (46-116) L Total Protein 6.7 G/DL (6.4-8.2) Albumin 3.1 G/DL (3.4-5.0) L Globulin 3.6 g/dL Albumin/Globulin Ratio 0.9 (1.0-2.7) L Triglycerides Level 82 MG/DL (30-150) Cholesterol Level 181 MG/DL (< 200) LDL Cholesterol 126 mg/dL (<100) H HDL Cholesterol 33 MG/DL (40-60) L Cholesterol/HDL Ratio 5.5 (3.3-4.4) H Thyroid Stimulating Hormone (TSH) 1.207 uiU/mL (0.358-3.740) Microbiology Date/Time Source Procedure Growth Status 10/31/19 18:00 Rectum Received Height (Feet): 5 Height (Inches): 5.00 Weight (Pounds): 130 Medications Current Medications Medications (Trade) Dose Ordered Sig/Brandon Route PRN Reason Start Time Stop Time Status Last Admin Dose Admin Acetaminophen (Tylenol) 650 mg Q4H PRN ORAL fever 10/31/19 13:45 11/30/19 13:44 Baclofen (Lioresal) 10 mg EVERY 8 HOURS ORAL 10/31/19 22:00 11/30/19 21:59 11/01/19 08:20 Carbidopa/Levodopa (Sinemet 25/100) 2 tab THREE TIMES A DAY ORAL 10/31/19 18:00 11/30/19 17:59 11/01/19 08:20 Dextrose (Dextrose 50%) 25 ml Q30M PRN IV Hypoglycemia 10/31/19 13:45 01/29/20 13:44 Dextrose (Dextrose 50%) 50 ml Q30M PRN IV Hypoglycemia 10/31/19 13:45 01/29/20 13:44 Enalapril Maleate (Vasotec) 10 mg DAILY ORAL 11/01/19 09:00 12/01/19 08:59 11/01/19 08:20 Ondansetron HCl (Zofran) 4 mg Q6H PRN IVP Nausea & Vomiting 10/31/19 13:45 11/30/19 13:44 Polyethylene Glycol (Miralax) 17 gm HSPRN PRN ORAL Constipation 10/31/19 13:45 11/30/19 13:44 Zolpidem Tartrate (Ambien) 5 mg HSPRN PRN ORAL Insomnia 10/31/19 13:45 11/07/19 13:44 Assessment/Plan Assessment/Plan: ASSESSMENT: This is a 64-year-old male. HIV.( CD4> 400, Vl , 20 ) Hep B Hx of .Parkinson disease. Hx of Cerebrovascular disease Generalized weakness. - Brain MRI : No acute intracranial hemorrhage or ischemia. Contusion of the left elbow. Contusion of the left orthodoxy. Hypertension. Hypercholesterolemia. P: Continue Genvoya and entecavir , Acyclovir ( pt may take home meds , ELEAZAR RN) Monitor CBC, CMP Monitor CXR Monitor Cx Thank you, we will follow Brad Tirado MD Nov 01, 2019 11:43
[2019-11-01 12:00] VITALS: BP 125/76
--- NOTE | 2019-11-01 13:21 | Pulmonology Progress Note ---
Assessment/Plan Problems: (1) Frequent falls (2) Parkinson disease (3) HIV (human immunodeficiency virus infection) (4) Homelessness (5) Cerebral vascular disease Assessment/Plan MRI of brain ordered risk stratification for recurrent CVA neurology evaluation, Dr Deng called pt/ot ID to manage HIV meds, ID consult appreciated continue and adjust Parkinson meds social service consult Subjective ROS Limited/Unobtainable: No Constitutional: Reports: no symptoms HEENT: Repors: no symptoms Respiratory: Reports: no symptoms Allergies: Coded Allergies: ABACAVIR (Verified Allergy, Unknown, ZIAGEN, 05/31/16) EFAVIRENZ (Verified Allergy, Unknown, SUSTIVA, 05/31/16) Objective Last 24 Hour Vital Signs Date Time Temp Pulse Resp B/P (MAP) Pulse Ox O2 Delivery O2 Flow Rate FiO2 11/01/19 12:00 96.3 79 20 125/76 (92) 100 11/01/19 09:00 Room Air 11/01/19 08:20 122/90 11/01/19 08:00 97.3 87 18 122/90 (101) 99 10/31/19 21:00 Room Air 10/31/19 20:00 98.4 94 22 139/71 (93) 96 10/31/19 16:35 Room Air 10/31/19 14:59 97.3 89 16 130/87 (101) 97 10/31/19 14:35 98.2 75 15 137/80 99 Room Air 10/31/19 14:02 98.2 75 15 137/80 99 Room Air Intake and Output 10/31/19 11/01/19 19:00 07:00 Intake Total 360 ml Output Total 300 ml Balance 360 ml -300 ml Intake Oral 360 ml Output Urine Total 300 ml # Voids 1 General Appearance: no acute distress HEENT: normocephalic, atraumatic Respiratory/Chest: chest wall non-tender, lungs clear Cardiovascular: normal peripheral pulses, normal rate Abdomen: normal bowel sounds, soft, non tender Genitourinary: normal external genitalia Skin: no rash Microbiology Date/Time Source Procedure Growth Status 10/31/19 18:00 Rectum Received Laboratory Tests 11/01/19 04:50: White Blood Count 8.6, Red Blood Count 4.12L, Hemoglobin 12.9L, Hematocrit 37.0L , Mean Corpuscular Volume 90, Mean Corpuscular Hemoglobin 31.3H, Mean Corpuscular Hemoglobin Concent 34.9, Red Cell Distribution Width 12.7, Platelet Count 295, Mean Platelet Volume 5.5L, Neutrophils (%) (Auto) 57.0, Lymphocytes ( %) (Auto) 31.5, Monocytes (%) (Auto) 8.6, Eosinophils (%) (Auto) 2.4, Basophils (%) (Auto) 0.5, Sodium Level 141, Potassium Level 4.0, Chloride Level 109H, Carbon Dioxide Level 23, Anion Gap 10, Blood Urea Nitrogen 24H, Creatinine 1.0, Estimat Glomerular Filtration Rate > 60, Glucose Level 89, Calcium Level 8.5, Total Bilirubin 0.2, Aspartate Amino Transf (AST/SGOT) 10L, Alanine Aminotransferase (ALT/SGPT) 6L, Alkaline Phosphatase 44L, Total Protein 6.7, Albumin 3.1L, Globulin 3.6, Albumin/Globulin Ratio 0.9L, Triglycerides Level 82 , Cholesterol Level 181, LDL Cholesterol 126H, HDL Cholesterol 33L, Cholesterol/ HDL Ratio 5.5H, Thyroid Stimulating Hormone (TSH) 1.207 Current Medications Medications (Trade) Dose Ordered Sig/Brandon Route PRN Reason Start Time Stop Time Status Last Admin Dose Admin Acetaminophen (Tylenol) 650 mg Q4H PRN ORAL fever 10/31/19 13:45 11/30/19 13:44 Baclofen (Lioresal) 10 mg EVERY 8 HOURS ORAL 10/31/19 22:00 11/30/19 21:59 11/01/19 08:20 Carbidopa/Levodopa (Sinemet 25/100) 2 tab THREE TIMES A DAY ORAL 10/31/19 18:00 11/30/19 17:59 11/01/19 08:20 Dextrose (Dextrose 50%) 25 ml Q30M PRN IV Hypoglycemia 10/31/19 13:45 01/29/20 13:44 Dextrose (Dextrose 50%) 50 ml Q30M PRN IV Hypoglycemia 10/31/19 13:45 01/29/20 13:44 Enalapril Maleate (Vasotec) 10 mg DAILY ORAL 11/01/19 09:00 12/01/19 08:59 11/01/19 08:20 Ondansetron HCl (Zofran) 4 mg Q6H PRN IVP Nausea & Vomiting 10/31/19 13:45 11/30/19 13:44 Polyethylene Glycol (Miralax) 17 gm HSPRN PRN ORAL Constipation 10/31/19 13:45 11/30/19 13:44 Zolpidem Tartrate (Ambien) 5 mg HSPRN PRN ORAL Insomnia 10/31/19 13:45 11/07/19 13:44 Leti Cruz MD Nov 01, 2019 13:20
[2019-11-01 16:00] VITALS: BP 130/80
--- NOTE | 2019-11-01 17:11 | Diagnostic Imaging Report ---
EXAM: MR Head Without Intravenous Contrast CLINICAL HISTORY: CVA TECHNIQUE: Magnetic resonance images of the head/brain without intravenous contrast in multiple planes. COMPARISON: 10/31/2019 CT head. FINDINGS: Brain: No acute intracranial hemorrhage or ischemia. Chronic small vessel ischemic changes. Ventricles: Unremarkable. Bones/joints: Unremarkable. Sinuses: Unremarkable as visualized. Mastoid air cells: Unremarkable as visualized. Orbits: Unremarkable as visualized. IMPRESSION: No acute intracranial hemorrhage or ischemia.
[2019-11-01 20:00] VITALS: BP 116/74
--- NOTE | 2019-11-01 22:21 | Internal Med Progress Note ---
Subjective Physician Name Carlos Garcia Attending Physician Carlos Garcia MD Current Medications Medications (Trade) Dose Ordered Sig/Brandon Route PRN Reason Start Time Stop Time Status Last Admin Dose Admin Acetaminophen (Tylenol) 650 mg Q4H PRN ORAL fever 10/31/19 13:45 11/30/19 13:44 Acyclovir (Zovirax) 800 mg DAILY ORAL 11/02/19 09:00 12/02/19 08:59 Baclofen (Lioresal) 10 mg EVERY 8 HOURS ORAL 10/31/19 22:00 11/30/19 21:59 11/01/19 21:53 Carbidopa/Levodopa (Sinemet 25/) 2 tab EVERY 4 HOURS ORAL 11/01/19 17:00 11/30/19 17:59 11/01/19 21:53 Dextrose (Dextrose 50%) 25 ml Q30M PRN IV Hypoglycemia 10/31/19 13:45 01/29/20 13:44 Dextrose (Dextrose 50%) 50 ml Q30M PRN IV Hypoglycemia 10/31/19 13:45 01/29/20 13:44 Enalapril Maleate (Vasotec) 10 mg DAILY ORAL 11/01/19 09:00 12/01/19 08:59 11/01/19 08:20 Ondansetron HCl (Zofran) 4 mg Q6H PRN IVP Nausea & Vomiting 10/31/19 13:45 11/30/19 13:44 Patient Own Medication (Patient's Own Med) 1 ea DAILY ORAL 11/02/19 09:00 12/02/19 08:59 Patient Own Medication (Patient's Own Med) 1 ea DAILY ORAL 11/02/19 09:00 12/02/19 08:59 Polyethylene Glycol (Miralax) 17 gm HSPRN PRN ORAL Constipation 10/31/19 13:45 11/30/19 13:44 Zolpidem Tartrate (Ambien) 5 mg HSPRN PRN ORAL Insomnia 10/31/19 13:45 11/07/19 13:44 Allergies: Coded Allergies: ABACAVIR (Verified Allergy, Unknown, ZIAGEN, 05/31/16) EFAVIRENZ (Verified Allergy, Unknown, SUSTIVA, 05/31/16) Subjective awake, responsive, weak, No CP or SOB Objective Last Vital Signs Date Time Temp Pulse Resp B/P (MAP) Pulse Ox O2 Delivery O2 Flow Rate FiO2 11/01/19 21:00 Room Air 11/01/19 20:00 98.5 83 18 116/74 (88) 98 Laboratory Tests Test 11/01/19 04:50 White Blood Count 8.6 K/UL (4.8-10.8) Red Blood Count 4.12 M/UL (4.70-6.10) L Hemoglobin 12.9 G/DL (14.2-18.0) L Hematocrit 37.0 % (42.0-52.0) L Mean Corpuscular Volume 90 FL (80-99) Mean Corpuscular Hemoglobin 31.3 PG (27.0-31.0) H Mean Corpuscular Hemoglobin Concent 34.9 G/DL (32.0-36.0) Red Cell Distribution Width 12.7 % (11.6-14.8) Platelet Count 295 K/UL (150-450) Mean Platelet Volume 5.5 FL (6.5-10.1) L Neutrophils (%) (Auto) 57.0 % (45.0-75.0) Lymphocytes (%) (Auto) 31.5 % (20.0-45.0) Monocytes (%) (Auto) 8.6 % (1.0-10.0) Eosinophils (%) (Auto) 2.4 % (0.0-3.0) Basophils (%) (Auto) 0.5 % (0.0-2.0) Sodium Level 141 MMOL/L (136-145) Potassium Level 4.0 MMOL/L (3.5-5.1) Chloride Level 109 MMOL/L (98-107) H Carbon Dioxide Level 23 MMOL/L (21-32) Anion Gap 10 mmol/L (5-15) Blood Urea Nitrogen 24 mg/dL (7-18) H Creatinine 1.0 MG/DL (0.55-1.30) Estimat Glomerular Filtration Rate > 60 mL/min (>60) Glucose Level 89 MG/DL (74-106) Calcium Level 8.5 MG/DL (8.5-10.1) Total Bilirubin 0.2 MG/DL (0.2-1.0) Aspartate Amino Transf (AST/SGOT) 10 U/L (15-37) L Alanine Aminotransferase (ALT/SGPT) 6 U/L (12-78) L Alkaline Phosphatase 44 U/L (46-116) L Total Protein 6.7 G/DL (6.4-8.2) Albumin 3.1 G/DL (3.4-5.0) L Globulin 3.6 g/dL Albumin/Globulin Ratio 0.9 (1.0-2.7) L Triglycerides Level 82 MG/DL (30-150) Cholesterol Level 181 MG/DL (< 200) LDL Cholesterol 126 mg/dL (<100) H HDL Cholesterol 33 MG/DL (40-60) L Cholesterol/HDL Ratio 5.5 (3.3-4.4) H Thyroid Stimulating Hormone (TSH) 1.207 uiU/mL (0.358-3.740) Microbiology Date/Time Source Procedure Growth Status 10/31/19 18:00 Rectum Received Intake and Output 10/31/19 11/01/19 19:00 07:00 Intake Total 360 ml Output Total 300 ml Balance 360 ml -300 ml Intake Oral 360 ml Output Urine Total 300 ml # Voids 1 Objective General: No acute distress, awake and alert HEENT: NCAT, sclera anicteric, PERRL, EOMI, Left eyebrow skin tear with hematoma. Neck: Supple, no significant jugular venous distention, Lungs: Fair inspiratory effort,clear to auscultation bilaterally, no Wheeze or Rales. Heart: Regular rate and rhythm, normal S1/S2, no murmur. Abdomen: soft, nontender, nondistended. Normoactive bowel sounds. / Rectal: Refused and deferred. Extremities: No Cyanosis , clubbing or edema. Neuro: A&O x 3, Able to move all extremities, Bilateral lower extremities weakness. Skin: warm, no rash, skin tear at left elbow and knee. Psych: Normal mood and affect Assessment/Plan Assessment/Plan ASSESSMENT: This is a 64-year-old male. 1. Failure to thrive with Generalized weakness. 2. Recurrent fall with contusion of the left elbow and left mu-ism. 3. HIV.. 4. Parkinson disease. 5. Cerebrovascular disease. 6. Hypertension. 7. Hypercholesterolemia. TREATMENT: 1. Generalized weakness. This may be secondary to transient ischemic attack. An initial CT scan of the brain was reported as within normal limits. 2. Parkinson disease. Continue Sinemet as above. 3. Abrasion of the left elbow and left mu-ism. This was evaluated in the emergency room. 4. Hypertension. Continue enalapril as above. 5. Hypercholesterolemia. Continue fenofibrate as above. 6. HIV. Continue Genvoya and entecavir as above. PT evaluation, Fall precaution Consider SNF placement upon discharge. Full code DVT Prophylaxis: Heparin SQ Carlos Garcia MD Nov 01, 2019 22:21
[2019-11-02] VITALS: BP 158/88
[2019-11-02] MEDS: Levodopa/Carbidopa 25/100 tab ORAL SCH ×6 (00:54→20:56)
[2019-11-02 04:00] VITALS: BP 109/79
[2019-11-02 08:00] VITALS: BP 125/83
[2019-11-02] MEDS: ENTECAVIR 1 MG ORAL SCH (08:31)
[2019-11-02 12:00] VITALS: BP 116/73
--- NOTE | 2019-11-02 12:46 | Infectious Diseases Prog Note ---
Assessment/Plan Assessment/Plan ASSESSMENT: This is a 64-year-old male. HIV.( CD4> 400, Vl , 20 ) Hep B Hx of .Parkinson disease. Hx of Cerebrovascular disease Generalized weakness. - Brain MRI : No acute intracranial hemorrhage or ischemia. Contusion of the left elbow. Contusion of the left hinduism. Hypertension. Hypercholesterolemia. P: Continue Genvoya and entecavir , Acyclovir ( pt may take home meds , ELEAZAR RN) Monitor CBC, CMP Monitor CXR Monitor Cx Thank you, we will follow Subjective Allergies: Coded Allergies: ABACAVIR (Verified Allergy, Unknown, ZIAGEN, 05/31/16) EFAVIRENZ (Verified Allergy, Unknown, SUSTIVA, 05/31/16) Subjective afebrile no leukocytosis Objective Vital Signs Last 24 Hour Vital Signs Date Time Temp Pulse Resp B/P (MAP) Pulse Ox O2 Delivery O2 Flow Rate FiO2 11/02/19 12:00 98.2 72 20 116/73 (87) 97 11/02/19 09:00 Room Air 11/02/19 08:30 125/83 11/02/19 08:00 97.2 76 18 125/83 (97) 97 11/02/19 04:00 97.3 78 18 109/79 (89) 98 11/02/19 00:00 97.0 75 20 158/88 (111) 98 11/01/19 21:00 Room Air 11/01/19 20:00 98.5 83 18 116/74 (88) 98 11/01/19 16:00 96.6 82 18 130/80 (97) 98 Height (Feet): 5 Height (Inches): 5.00 Weight (Pounds): 130 Objective HEENT: anicteric Neck: supple Respiratory/Chest: lungs clear Cardiovascular/Chest: regular rhythm Abdomen: soft Microbiology Date/Time Source Procedure Growth Status 10/31/19 18:00 Nasal Nares MRSA Culture - Final NO METHICILLIN RESISTANT STAPH AUREUS... Complete 10/31/19 18:00 Rectum VRE Culture - Final NO VANCOMYCIN RESISTANT ENTEROCOCCUS ... Complete 10/31/19 18:00 Rectum - Final NO CARBAPENEM-RESISTANT ENTEROBACTERI... Complete Current Medications Medications (Trade) Dose Ordered Sig/Brandon Route PRN Reason Start Time Stop Time Status Last Admin Dose Admin Acetaminophen (Tylenol) 650 mg Q4H PRN ORAL fever 10/31/19 13:45 11/30/19 13:44 Acyclovir (Zovirax) 800 mg DAILY ORAL 11/02/19 09:00 12/02/19 08:59 11/02/19 08:30 Baclofen (Lioresal) 10 mg EVERY 8 HOURS ORAL 10/31/19 22:00 11/30/19 21:59 11/02/19 05:03 Carbidopa/Levodopa (Sinemet 25/100) 2 tab EVERY 4 HOURS ORAL 11/01/19 17:00 11/30/19 17:59 11/02/19 08:30 Dextrose (Dextrose 50%) 25 ml Q30M PRN IV Hypoglycemia 10/31/19 13:45 01/29/20 13:44 Dextrose (Dextrose 50%) 50 ml Q30M PRN IV Hypoglycemia 10/31/19 13:45 01/29/20 13:44 Enalapril Maleate (Vasotec) 10 mg DAILY ORAL 11/01/19 09:00 12/01/19 08:59 11/02/19 08:30 Ondansetron HCl (Zofran) 4 mg Q6H PRN IVP Nausea & Vomiting 10/31/19 13:45 11/30/19 13:44 Patient Own Medication (Patient's Own Med) 1 ea DAILY ORAL 11/02/19 09:00 12/02/19 08:59 11/02/19 08:30 Patient Own Medication (Patient's Own Med) 1 ea DAILY ORAL 11/02/19 09:00 12/02/19 08:59 11/02/19 08:31 Polyethylene Glycol (Miralax) 17 gm HSPRN PRN ORAL Constipation 10/31/19 13:45 11/30/19 13:44 Zolpidem Tartrate (Ambien) 5 mg HSPRN PRN ORAL Insomnia 10/31/19 13:45 11/07/19 13:44 Adeola Loving M.D. Nov 02, 2019 12:46
[2019-11-02] MEDS ORDERED: FENOFIBRATE134 M1 ORAL (13:56)
[2019-11-02] MEDS ORDERED: ACYCLOVIR800 MG ORAL (13:56)
[2019-11-02] MEDS ORDERED: ENTECAVIR1 MG PO (13:56)
[2019-11-02] MEDS ORDERED: BACTRIM DS TAB1 EAC1 ORAL (14:03)
[2019-11-02] MEDS ORDERED: SINEMET 25-1001 EAC1 ORAL (14:05)
--- NOTE | 2019-11-02 15:40 | Internal Med Progress Note ---
Subjective Date of Service: Nov 02, 2019 Physician Name ZeniaTalat Attending Physician Carlos Garcia MD Current Medications Medications (Trade) Dose Ordered Sig/Brandon Route PRN Reason Start Time Stop Time Status Last Admin Dose Admin Acetaminophen (Tylenol) 650 mg Q4H PRN ORAL fever 10/31/19 13:45 11/30/19 13:44 Acyclovir (Zovirax) 800 mg DAILY ORAL 11/02/19 09:00 12/02/19 08:59 11/02/19 08:30 Baclofen (Lioresal) 10 mg EVERY 8 HOURS ORAL 10/31/19 22:00 11/30/19 21:59 11/02/19 12:59 Carbidopa/Levodopa (Sinemet 25/) 2 tab EVERY 4 HOURS ORAL 11/01/19 17:00 11/30/19 17:59 11/02/19 12:59 Dextrose (Dextrose 50%) 25 ml Q30M PRN IV Hypoglycemia 10/31/19 13:45 01/29/20 13:44 Dextrose (Dextrose 50%) 50 ml Q30M PRN IV Hypoglycemia 10/31/19 13:45 01/29/20 13:44 Enalapril Maleate (Vasotec) 10 mg DAILY ORAL 11/01/19 09:00 12/01/19 08:59 11/02/19 08:30 Ondansetron HCl (Zofran) 4 mg Q6H PRN IVP Nausea & Vomiting 10/31/19 13:45 11/30/19 13:44 Patient Own Medication (Patient's Own Med) 1 ea DAILY ORAL 11/02/19 09:00 12/02/19 08:59 11/02/19 08:30 Patient Own Medication (Patient's Own Med) 1 ea DAILY ORAL 11/02/19 09:00 12/02/19 08:59 11/02/19 08:31 Polyethylene Glycol (Miralax) 17 gm HSPRN PRN ORAL Constipation 10/31/19 13:45 11/30/19 13:44 Zolpidem Tartrate (Ambien) 5 mg HSPRN PRN ORAL Insomnia 10/31/19 13:45 11/07/19 13:44 Allergies: Coded Allergies: ABACAVIR (Verified Allergy, Unknown, ZIAGEN, 05/31/16) EFAVIRENZ (Verified Allergy, Unknown, SUSTIVA, 05/31/16) ROS Limited/Unobtainable: No Constitutional: Reports: weakness HEENT: Reports: no symptoms Cardiovascular: Reports: no symptoms Respiratory: Reports: no symptoms Gastrointestinal/Abdominal: Reports: no symptoms Genitourinary: Reports: no symptoms Neurologic/Psychiatric: Reports: no symptoms Subjective 64 YO M admitted with generalized weakness and fall injury. Cover for Int med- Dr Garcia Objective Last Vital Signs Date Time Temp Pulse Resp B/P (MAP) Pulse Ox O2 Delivery O2 Flow Rate FiO2 11/02/19 12:00 98.2 72 20 116/73 (87) 97 11/02/19 09:00 Room Air Microbiology Date/Time Source Procedure Growth Status 10/31/19 18:00 Nasal Nares MRSA Culture - Final NO METHICILLIN RESISTANT STAPH AUREUS... Complete 10/31/19 18:00 Rectum VRE Culture - Final NO VANCOMYCIN RESISTANT ENTEROCOCCUS ... Complete 10/31/19 18:00 Rectum - Final NO CARBAPENEM-RESISTANT ENTEROBACTERI... Complete Intake and Output 11/01/19 11/02/19 19:00 07:00 Intake Total 700 ml Output Total 2100 ml 1200 ml Balance -1400 ml -1200 ml Intake Oral 700 ml Output Urine Total 2100 ml 1200 ml Objective PHYSICAL EXAMINATION: GENERAL: The patient is a well-developed and well-nourished male, in no apparent distress. HEENT: Eyes, pupils are equal and responsive to light and accommodation. Extraocular movements are intact. NECK: Supple without lymphadenopathy. CHEST: Lungs are clear to auscultation bilaterally without wheezes or rales. CARDIOVASCULAR: Regular rhythm and rate. S1 and S2 are normal without murmurs, rubs, or gallops. ABDOMEN: Soft, nontender, and nondistended. Positive bowel sounds. No evidence of hepatosplenomegaly. Currently, no rebound or guarding noted. EXTREMITIES: Negative for clubbing, cyanosis, or edema. RECTAL/GENITAL: Not performed. NEUROLOGIC: Cranial nerves II through XII are grossly intact without focal deficits Assessment/Plan Assessment/Plan ASSESSMENT: This is a 64-year-old male. 1. Generalized weakness. 2. Contusion of the left elbow. 3. Contusion of the left zoroastrian. 4. Parkinson disease. 5. Cerebrovascular disease. 6. Hypertension. 7. Hypercholesterolemia. 8. HIV. TREATMENT: 1. Generalized weakness. This may be secondary to transient ischemic attack. An initial CT scan of the brain was reported as within normal limits. 2. Parkinson disease. Continue Sinemet as above. 3. Abrasion of the left elbow and left zoroastrian. This was evaluated in the emergency room. 4. Hypertension. Continue enalapril as above. 5. Hypercholesterolemia. Continue fenofibrate as above. 6. HIV. Continue Genvoya and entecavir as above. Talat Knutson MD Nov 02, 2019 15:40
[2019-11-02 16:00] VITALS: BP 114/71
--- NOTE | 2019-11-02 17:06 | Pulmonology Progress Note ---
Assessment/Plan Problems: (1) Frequent falls (2) Parkinson disease (3) HIV (human immunodeficiency virus infection) (4) Homelessness (5) Cerebral vascular disease Assessment/Plan MRI of brain reviewed. chronic atherovascular disease awaiting neuro consult risk stratification for recurrent CVA neurology evaluation, Dr Deng called pt/ot ID to manage HIV meds, ID consult appreciated continue and adjust Parkinson meds social service consult Subjective ROS Limited/Unobtainable: No Constitutional: Reports: no symptoms HEENT: Repors: no symptoms Allergies: Coded Allergies: ABACAVIR (Verified Allergy, Unknown, ZIAGEN, 05/31/16) EFAVIRENZ (Verified Allergy, Unknown, SUSTIVA, 05/31/16) Objective Last 24 Hour Vital Signs Date Time Temp Pulse Resp B/P (MAP) Pulse Ox O2 Delivery O2 Flow Rate FiO2 11/02/19 16:00 97.1 63 18 114/71 (85) 95 11/02/19 12:00 98.2 72 20 116/73 (87) 97 11/02/19 09:00 Room Air 11/02/19 08:30 125/83 11/02/19 08:00 97.2 76 18 125/83 (97) 97 11/02/19 04:00 97.3 78 18 109/79 (89) 98 11/02/19 00:00 97.0 75 20 158/88 (111) 98 11/01/19 21:00 Room Air 11/01/19 20:00 98.5 83 18 116/74 (88) 98 Intake and Output 11/01/19 11/02/19 19:00 07:00 Intake Total 700 ml Output Total 2100 ml 1200 ml Balance -1400 ml -1200 ml Intake Oral 700 ml Output Urine Total 2100 ml 1200 ml Objective General Appearance: WD/WN HEENT: normocephalic Respiratory/Chest: chest wall non-tender, lungs clear Cardiovascular: normal rate, regular rhythm Abdomen: normal bowel sounds, no organomegaly Extremities: no cyanosis Skin: no ulcers 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 Complete 10/31/19 18:00 Rectum VRE Culture - Final NO VANCOMYCIN RESISTANT ENTEROCOCCUS ... Complete 10/31/19 18:00 Rectum - Final NO CARBAPENEM-RESISTANT ENTEROBACTERI... Complete Current Medications Medications (Trade) Dose Ordered Sig/Brandon Route PRN Reason Start Time Stop Time Status Last Admin Dose Admin Acetaminophen (Tylenol) 650 mg Q4H PRN ORAL fever 10/31/19 13:45 11/30/19 13:44 Acyclovir (Zovirax) 800 mg DAILY ORAL 11/02/19 09:00 12/02/19 08:59 11/02/19 08:30 Baclofen (Lioresal) 10 mg EVERY 8 HOURS ORAL 10/31/19 22:00 11/30/19 21:59 11/02/19 12:59 Carbidopa/Levodopa (Sinemet 25/) 2 tab EVERY 4 HOURS ORAL 11/01/19 17:00 11/30/19 17:59 11/02/19 12:59 Dextrose (Dextrose 50%) 25 ml Q30M PRN IV Hypoglycemia 10/31/19 13:45 01/29/20 13:44 Dextrose (Dextrose 50%) 50 ml Q30M PRN IV Hypoglycemia 10/31/19 13:45 01/29/20 13:44 Enalapril Maleate (Vasotec) 10 mg DAILY ORAL 11/01/19 09:00 12/01/19 08:59 11/02/19 08:30 Ondansetron HCl (Zofran) 4 mg Q6H PRN IVP Nausea & Vomiting 10/31/19 13:45 11/30/19 13:44 Patient Own Medication (Patient's Own Med) 1 ea DAILY ORAL 11/02/19 09:00 12/02/19 08:59 11/02/19 08:30 Patient Own Medication (Patient's Own Med) 1 ea DAILY ORAL 11/02/19 09:00 12/02/19 08:59 11/02/19 08:31 Polyethylene Glycol (Miralax) 17 gm HSPRN PRN ORAL Constipation 10/31/19 13:45 11/30/19 13:44 Zolpidem Tartrate (Ambien) 5 mg HSPRN PRN ORAL Insomnia 10/31/19 13:45 11/07/19 13:44 Leti Cruz MD Nov 02, 2019 17:06
[2019-11-02 20:00] VITALS: BP 124/86
[2019-11-03] VITALS: BP 100/53
[2019-11-03] MEDS: Levodopa/Carbidopa 25/100 tab ORAL SCH ×6 (01:07→21:52)
[2019-11-03 04:00] VITALS: BP 114/74
[2019-11-03 07:24] LABS: BASOPHILS % (AUTO) 0.6 % (0.0-2.0); EOSINOPHILS % (AUTO) 2.5 % (0.0-3.0); HEMATOCRIT 40.9 % (42.0-52.0); LYMPHOCYTES % (AUTO) 33.7 % (20.0-45.0); MEAN CORPUSCULAR VOLUME 90 FL (80-99); MONOCYTES % (AUTO) 8.9 % (1.0-10.0); NEUTROPHILS % (AUTO) 54.4 % (45.0-75.0); PLATELET COUNT 338 K/UL (150-450); RED BLOOD COUNT 4.57 M/UL (4.70-6.10); RED CELL DISTRIBUTION WIDTH 13.2 % (11.6-14.8); WHITE BLOOD COUNT 8.3 K/UL (4.8-10.8)
[2019-11-03 07:26] LABS: ALANINE AMINOTRANSFERASE 8 U/L (12-78); ALBUMIN 3.6 G/DL (3.4-5.0); ALBUMIN/GLOBULIN RATIO 0.9 (1.0-2.7); ALKALINE PHOSPHATASE 39 U/L (46-116); ANION GAP 11 mmol/L (5-15); ASPARTATE AMINO TRANSFERASE 12 U/L (15-37); BILIRUBIN,TOTAL 0.3 MG/DL (0.2-1.0); BLOOD UREA NITROGEN 32 mg/dL (7-18); CALCIUM 9.5 MG/DL (8.5-10.1); CARBON DIOXIDE 25 MMOL/L (21-32); CHLORIDE 105 MMOL/L (98-107); CREATININE 1.2 MG/DL (0.55-1.30); PHOSPHORUS 3.7 MG/DL (2.5-4.9); POTASSIUM 4.2 MMOL/L (3.5-5.1); SODIUM 140 MMOL/L (136-145)
[2019-11-03 08:00] VITALS: BP 95/72
[2019-11-03] MEDS: ENTECAVIR 1 MG ORAL SCH (09:19)
[2019-11-03 12:00] VITALS: BP 107/63
--- NOTE | 2019-11-03 14:28 | Internal Med Progress Note ---
Subjective Date of Service: Nov 03, 2019 Physician Name KnutsonTalat Attending Physician Carlos Garcia MD Current Medications Medications (Trade) Dose Ordered Sig/Brandon Route PRN Reason Start Time Stop Time Status Last Admin Dose Admin Acetaminophen (Tylenol) 650 mg Q4H PRN ORAL Mild Pain/Temp > 100.5 11/03/19 11:30 11/30/19 11:29 11/03/19 10:39 Acyclovir (Zovirax) 800 mg DAILY ORAL 11/02/19 09:00 12/02/19 08:59 11/03/19 09:18 Baclofen (Lioresal) 10 mg EVERY 8 HOURS ORAL 10/31/19 22:00 11/30/19 21:59 11/03/19 13:53 Carbidopa/Levodopa (Sinemet /) 2 tab EVERY 4 HOURS ORAL 11/01/19 17:00 11/30/19 17:59 11/03/19 13:53 Dextrose (Dextrose 50%) 25 ml Q30M PRN IV Hypoglycemia 10/31/19 13:45 01/29/20 13:44 Dextrose (Dextrose 50%) 50 ml Q30M PRN IV Hypoglycemia 10/31/19 13:45 01/29/20 13:44 Enalapril Maleate (Vasotec) 10 mg DAILY ORAL 11/01/19 09:00 12/01/19 08:59 11/02/19 08:30 Ondansetron HCl (Zofran) 4 mg Q6H PRN IVP Nausea & Vomiting 10/31/19 13:45 11/30/19 13:44 Pantoprazole (Protonix) 40 mg DAILY ORAL 11/03/19 11:30 12/03/19 11:29 11/03/19 12:00 Patient Own Medication (Patient's Own Med) 1 ea DAILY ORAL 11/02/19 09:00 12/02/19 08:59 11/03/19 09:19 Patient Own Medication (Patient's Own Med) 1 ea DAILY ORAL 11/02/19 09:00 12/02/19 08:59 11/03/19 09:19 Polyethylene Glycol (Miralax) 17 gm HSPRN PRN ORAL Constipation 10/31/19 13:45 11/30/19 13:44 Zolpidem Tartrate (Ambien) 5 mg HSPRN PRN ORAL Insomnia 10/31/19 13:45 11/07/19 13:44 Allergies: Coded Allergies: ABACAVIR (Verified Allergy, Unknown, ZIAGEN, 05/31/16) EFAVIRENZ (Verified Allergy, Unknown, SUSTIVA, 05/31/16) ROS Limited/Unobtainable: No Constitutional: Reports: weakness HEENT: Reports: no symptoms Cardiovascular: Reports: no symptoms Respiratory: Reports: no symptoms Gastrointestinal/Abdominal: Reports: no symptoms Genitourinary: Reports: no symptoms Neurologic/Psychiatric: Reports: no symptoms Subjective 64 YO M admitted with generalized weakness and fall injury. Cover for Int med- Dr Garcia Objective Last Vital Signs Date Time Temp Pulse Resp B/P (MAP) Pulse Ox O2 Delivery O2 Flow Rate FiO2 11/03/19 12:00 97.6 63 18 107/63 (78) 97 11/03/19 09:00 Room Air Laboratory Tests Test 11/03/19 04:55 11/03/19 11:30 White Blood Count 8.3 K/UL (4.8-10.8) Red Blood Count 4.57 M/UL (4.70-6.10) L Hemoglobin 14.0 G/DL (14.2-18.0) L Hematocrit 40.9 % (42.0-52.0) L Mean Corpuscular Volume 90 FL (80-99) Mean Corpuscular Hemoglobin 30.7 PG (27.0-31.0) Mean Corpuscular Hemoglobin Concent 34.3 G/DL (32.0-36.0) Red Cell Distribution Width 13.2 % (11.6-14.8) Platelet Count 338 K/UL (150-450) Mean Platelet Volume 5.4 FL (6.5-10.1) L Neutrophils (%) (Auto) 54.4 % (45.0-75.0) Lymphocytes (%) (Auto) 33.7 % (20.0-45.0) Monocytes (%) (Auto) 8.9 % (1.0-10.0) Eosinophils (%) (Auto) 2.5 % (0.0-3.0) Basophils (%) (Auto) 0.6 % (0.0-2.0) Prothrombin Time 10.8 SEC (9.30-11.50) Prothromb Time International Ratio 1.0 (0.9-1.1) Activated Partial Thromboplast Time 28 SEC (23-33) Sodium Level 140 MMOL/L (136-145) Potassium Level 4.2 MMOL/L (3.5-5.1) Chloride Level 105 MMOL/L (98-107) Carbon Dioxide Level 25 MMOL/L (21-32) Anion Gap 11 mmol/L (5-15) Blood Urea Nitrogen 32 mg/dL (7-18) H Creatinine 1.2 MG/DL (0.55-1.30) Estimat Glomerular Filtration Rate > 60 mL/min (>60) Glucose Level 89 MG/DL (74-106) Calcium Level 9.5 MG/DL (8.5-10.1) Phosphorus Level 3.7 MG/DL (2.5-4.9) Magnesium Level 2.0 MG/DL (1.8-2.4) Total Bilirubin 0.3 MG/DL (0.2-1.0) Aspartate Amino Transf (AST/SGOT) 12 U/L (15-37) L Alanine Aminotransferase (ALT/SGPT) 8 U/L (12-78) L Alkaline Phosphatase 39 U/L (46-116) L Total Protein 7.6 G/DL (6.4-8.2) Albumin 3.6 G/DL (3.4-5.0) Globulin 4.0 g/dL Albumin/Globulin Ratio 0.9 (1.0-2.7) L Troponin I 0.000 ng/mL (0.000-0.056) Microbiology Date/Time Source Procedure Growth Status 10/31/19 18:00 Nasal Nares MRSA Culture - Final NO METHICILLIN RESISTANT STAPH AUREUS... Complete 10/31/19 18:00 Rectum VRE Culture - Final NO VANCOMYCIN RESISTANT ENTEROCOCCUS ... Complete 10/31/19 18:00 Rectum - Final NO CARBAPENEM-RESISTANT ENTEROBACTERI... Complete Intake and Output 11/02/19 11/03/19 19:00 07:00 Intake Total 720 ml 500 ml Output Total 1600 ml Balance 720 ml -1100 ml Intake Oral 720 ml 500 ml Output Urine Total 1600 ml Objective PHYSICAL EXAMINATION: GENERAL: The patient is a well-developed and well-nourished male, in no apparent distress. HEENT: Eyes, pupils are equal and responsive to light and accommodation. Extraocular movements are intact. NECK: Supple without lymphadenopathy. CHEST: Lungs are clear to auscultation bilaterally without wheezes or rales. CARDIOVASCULAR: Regular rhythm and rate. S1 and S2 are normal without murmurs, rubs, or gallops. ABDOMEN: Soft, nontender, and nondistended. Positive bowel sounds. No evidence of hepatosplenomegaly. Currently, no rebound or guarding noted. EXTREMITIES: Negative for clubbing, cyanosis, or edema. RECTAL/GENITAL: Not performed. NEUROLOGIC: Cranial nerves II through XII are grossly intact without focal deficits Assessment/Plan Assessment/Plan ASSESSMENT: This is a 64-year-old male. 1. Generalized weakness. 2. Contusion of the left elbow. 3. Contusion of the left mandaen. 4. Parkinson disease. 5. Cerebrovascular disease. 6. Hypertension. 7. Hypercholesterolemia. 8. HIV. TREATMENT: 1. Generalized weakness. This may be secondary to transient ischemic attack. An initial CT scan of the brain was reported as within normal limits. 2. Parkinson disease. Continue Sinemet as above. 3. Abrasion of the left elbow and left mandaen. This was evaluated in the emergency room. 4. Hypertension. Continue enalapril as above. 5. Hypercholesterolemia. Continue fenofibrate as above. 6. HIV. Continue Genvoya and entecavir as above. Talat Knutson MD Nov 03, 2019 14:28
[2019-11-03 16:00] VITALS: BP 116/72
--- NOTE | 2019-11-03 16:32 | Pulmonology Progress Note ---
Assessment/Plan Problems: (1) Frequent falls (2) Parkinson disease (3) HIV (human immunodeficiency virus infection) (4) Homelessness (5) Cerebral vascular disease Assessment/Plan MRI of brain reviewed. chronic atherovascular disease awaiting neuro consult risk stratification for recurrent CVA neurology evaluation, Dr Deng called pt/ot ID to manage HIV meds, ID consult appreciated continue and adjust Parkinson meds social service consult Subjective ROS Limited/Unobtainable: No Constitutional: Reports: no symptoms HEENT: Repors: no symptoms Respiratory: Reports: no symptoms Allergies: Coded Allergies: ABACAVIR (Verified Allergy, Unknown, ZIAGEN, 05/31/16) EFAVIRENZ (Verified Allergy, Unknown, SUSTIVA, 05/31/16) Objective Last 24 Hour Vital Signs Date Time Temp Pulse Resp B/P (MAP) Pulse Ox O2 Delivery O2 Flow Rate FiO2 11/03/19 12:00 97.6 63 18 107/63 (78) 97 11/03/19 09:00 Room Air 11/03/19 08:26 95/72 11/03/19 08:00 98.6 86 18 95/72 (80) 95 11/03/19 04:00 97.3 77 18 114/74 (87) 97 11/03/19 00:00 98.2 89 20 100/53 (69) 98 11/02/19 21:00 Room Air 11/02/19 20:00 98.2 81 20 124/86 (99) 97 Intake and Output 11/02/19 11/03/19 19:00 07:00 Intake Total 720 ml 500 ml Output Total 1600 ml Balance 720 ml -1100 ml Intake Oral 720 ml 500 ml Output Urine Total 1600 ml Objective General Appearance: WD/WN HEENT: normocephalic Respiratory/Chest: chest wall non-tender, lungs clear Cardiovascular: normal rate, regular rhythm Abdomen: normal bowel sounds, no organomegaly Extremities: no cyanosis Skin: no ulcers 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 Complete 10/31/19 18:00 Rectum VRE Culture - Final NO VANCOMYCIN RESISTANT ENTEROCOCCUS ... Complete 10/31/19 18:00 Rectum - Final NO CARBAPENEM-RESISTANT ENTEROBACTERI... Complete Laboratory Tests 11/03/19 04:55: White Blood Count 8.3, Red Blood Count 4.57L, Hemoglobin 14.0L, Hematocrit 40.9L , Mean Corpuscular Volume 90, Mean Corpuscular Hemoglobin 30.7, Mean Corpuscular Hemoglobin Concent 34.3, Red Cell Distribution Width 13.2, Platelet Count 338, Mean Platelet Volume 5.4L, Neutrophils (%) (Auto) 54.4, Lymphocytes ( %) (Auto) 33.7, Monocytes (%) (Auto) 8.9, Eosinophils (%) (Auto) 2.5, Basophils (%) (Auto) 0.6, Prothrombin Time 10.8, Prothromb Time International Ratio 1.0, Activated Partial Thromboplast Time 28, Sodium Level 140, Potassium Level 4.2, Chloride Level 105, Carbon Dioxide Level 25, Anion Gap 11, Blood Urea Nitrogen 32H, Creatinine 1.2, Estimat Glomerular Filtration Rate > 60, Glucose Level 89, Calcium Level 9.5, Phosphorus Level 3.7, Magnesium Level 2.0, Total Bilirubin 0.3, Aspartate Amino Transf (AST/SGOT) 12L, Alanine Aminotransferase (ALT/SGPT) 8L, Alkaline Phosphatase 39L, Total Protein 7.6, Albumin 3.6, Globulin 4.0, Albumin/Globulin Ratio 0.9L 11/03/19 11:30: Troponin I 0.000 Current Medications Medications (Trade) Dose Ordered Sig/Brandon Route PRN Reason Start Time Stop Time Status Last Admin Dose Admin Acetaminophen (Tylenol) 650 mg Q4H PRN ORAL Mild Pain/Temp > 100.5 11/03/19 11:30 11/30/19 11:29 11/03/19 10:39 Acyclovir (Zovirax) 800 mg DAILY ORAL 11/02/19 09:00 12/02/19 08:59 11/03/19 09:18 Baclofen (Lioresal) 10 mg EVERY 8 HOURS ORAL 10/31/19 22:00 11/30/19 21:59 11/03/19 13:53 Carbidopa/Levodopa (Sinemet 25/100) 2 tab EVERY 4 HOURS ORAL 11/01/19 17:00 11/30/19 17:59 11/03/19 13:53 Dextrose (Dextrose 50%) 25 ml Q30M PRN IV Hypoglycemia 10/31/19 13:45 01/29/20 13:44 Dextrose (Dextrose 50%) 50 ml Q30M PRN IV Hypoglycemia 10/31/19 13:45 01/29/20 13:44 Enalapril Maleate (Vasotec) 10 mg DAILY ORAL 11/01/19 09:00 12/01/19 08:59 11/02/19 08:30 Ondansetron HCl (Zofran) 4 mg Q6H PRN IVP Nausea & Vomiting 10/31/19 13:45 11/30/19 13:44 Pantoprazole (Protonix) 40 mg DAILY ORAL 11/03/19 11:30 12/03/19 11:29 11/03/19 12:00 Patient Own Medication (Patient's Own Med) 1 ea DAILY ORAL 11/02/19 09:00 12/02/19 08:59 11/03/19 09:19 Patient Own Medication (Patient's Own Med) 1 ea DAILY ORAL 11/02/19 09:00 12/02/19 08:59 11/03/19 09:19 Polyethylene Glycol (Miralax) 17 gm HSPRN PRN ORAL Constipation 10/31/19 13:45 11/30/19 13:44 Zolpidem Tartrate (Ambien) 5 mg HSPRN PRN ORAL Insomnia 10/31/19 13:45 11/07/19 13:44 Leti Crzu MD Nov 03, 2019 16:32
[2019-11-03 20:00] VITALS: BP 110/67
[2019-11-04] VITALS: BP 126/76
[2019-11-04] MEDS: Levodopa/Carbidopa 25/100 tab ORAL SCH ×6 (01:31→21:17)
[2019-11-04 04:00] VITALS: BP 122/87
[2019-11-04 06:38] LABS: BASOPHILS % (AUTO) 0.9 % (0.0-2.0); HEMATOCRIT 41.3 % (42.0-52.0); LYMPHOCYTES % (AUTO) 30.3 % (20.0-45.0); MEAN CORPUSCULAR VOLUME 89 FL (80-99); MONOCYTES % (AUTO) 9.4 % (1.0-10.0); NEUTROPHILS % (AUTO) 56.5 % (45.0-75.0); PLATELET COUNT 309 K/UL (150-450); RED BLOOD COUNT 4.62 M/UL (4.70-6.10); RED CELL DISTRIBUTION WIDTH 12.8 % (11.6-14.8); WHITE BLOOD COUNT 9.2 K/UL (4.8-10.8)
[2019-11-04 06:52] LABS: ANION GAP 10 mmol/L (5-15); BLOOD UREA NITROGEN 27 mg/dL (7-18); CALCIUM 9.3 MG/DL (8.5-10.1); CARBON DIOXIDE 26 MMOL/L (21-32); CHLORIDE 101 MMOL/L (98-107); CREATININE 1.1 MG/DL (0.55-1.30); POTASSIUM 4.4 MMOL/L (3.5-5.1); SODIUM 137 MMOL/L (136-145)
[2019-11-04 08:00] VITALS: BP 120/87
[2019-11-04] MEDS: ENTECAVIR 1 MG ORAL SCH (08:56)
[2019-11-04 12:00] VITALS: BP 122/82
--- NOTE | 2019-11-04 15:18 | Pulmonology Progress Note ---
Assessment/Plan Problems: (1) Frequent falls (2) Parkinson disease (3) HIV (human immunodeficiency virus infection) (4) Homelessness (5) Cerebral vascular disease Assessment/Plan MRI of brain reviewed. chronic atherovascular disease awaiting neuro consult risk stratification for recurrent CVA neurology evaluation, Dr Deng called pt/ot ID to manage HIV meds, ID consult appreciated continue and adjust Parkinson meds social service consult Subjective ROS Limited/Unobtainable: No Allergies: Coded Allergies: ABACAVIR (Verified Allergy, Unknown, ZIAGEN, 05/31/16) EFAVIRENZ (Verified Allergy, Unknown, SUSTIVA, 05/31/16) Objective Last 24 Hour Vital Signs Date Time Temp Pulse Resp B/P (MAP) Pulse Ox O2 Delivery O2 Flow Rate FiO2 11/04/19 12:00 98.1 82 20 122/82 (95) 99 11/04/19 08:56 120/87 11/04/19 08:23 Room Air 11/04/19 08:00 97.0 82 18 120/87 (98) 99 11/04/19 04:00 97.8 88 19 122/87 (99) 97 11/04/19 00:00 98.9 80 20 126/76 (93) 97 11/03/19 21:00 Room Air 11/03/19 20:00 98.2 81 20 110/67 (81) 100 11/03/19 16:00 98.7 82 21 116/72 (87) 97 Intake and Output 11/03/19 11/04/19 19:00 07:00 Intake Total 1200 ml 120 ml Output Total 1400 ml 725 ml Balance -200 ml -605 ml Intake Oral 1200 ml 120 ml Output Urine Total 1400 ml 725 ml Objective General Appearance: WD/WN HEENT: normocephalic Respiratory/Chest: chest wall non-tender, lungs clear Cardiovascular: normal rate, regular rhythm Abdomen: normal bowel sounds, no organomegaly Extremities: no cyanosis Skin: no ulcers 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 Laboratory Tests 11/04/19 06:15: White Blood Count 9.2, Red Blood Count 4.62L, Hemoglobin 14.0L, Hematocrit 41.3L , Mean Corpuscular Volume 89, Mean Corpuscular Hemoglobin 30.3, Mean Corpuscular Hemoglobin Concent 33.9, Red Cell Distribution Width 12.8, Platelet Count 309, Mean Platelet Volume 5.5L, Neutrophils (%) (Auto) 56.5, Lymphocytes ( %) (Auto) 30.3, Monocytes (%) (Auto) 9.4, Eosinophils (%) (Auto) 3.0, Basophils (%) (Auto) 0.9, Sodium Level 137, Potassium Level 4.4, Chloride Level 101, Carbon Dioxide Level 26, Anion Gap 10, Blood Urea Nitrogen 27H, Creatinine 1.1, Estimat Glomerular Filtration Rate > 60, Glucose Level 95, Calcium Level 9.3 Current Medications Medications (Trade) Dose Ordered Sig/Brandon Route PRN Reason Start Time Stop Time Status Last Admin Dose Admin Acetaminophen (Tylenol) 650 mg Q4H PRN ORAL Mild Pain/Temp > 100.5 11/03/19 11:30 11/30/19 11:29 11/03/19 10:39 Acyclovir (Zovirax) 800 mg DAILY ORAL 11/02/19 09:00 12/02/19 08:59 11/04/19 08:56 Baclofen (Lioresal) 10 mg EVERY 8 HOURS ORAL 10/31/19 22:00 11/30/19 21:59 11/04/19 12:54 Carbidopa/Levodopa (Sinemet 25/100) 2 tab EVERY 4 HOURS ORAL 11/01/19 17:00 11/30/19 17:59 11/04/19 12:54 Dextrose (Dextrose 50%) 25 ml Q30M PRN IV Hypoglycemia 10/31/19 13:45 01/29/20 13:44 Dextrose (Dextrose 50%) 50 ml Q30M PRN IV Hypoglycemia 10/31/19 13:45 01/29/20 13:44 Enalapril Maleate (Vasotec) 10 mg DAILY ORAL 11/01/19 09:00 12/01/19 08:59 11/04/19 08:56 Ondansetron HCl (Zofran) 4 mg Q6H PRN IVP Nausea & Vomiting 10/31/19 13:45 11/30/19 13:44 Pantoprazole (Protonix) 40 mg DAILY ORAL 11/03/19 11:30 12/03/19 11:29 11/04/19 08:56 Patient Own Medication (Patient's Own Med) 1 ea DAILY ORAL 11/02/19 09:00 12/02/19 08:59 11/04/19 08:56 Patient Own Medication (Patient's Own Med) 1 ea DAILY ORAL 11/02/19 09:00 12/02/19 08:59 11/04/19 08:56 Polyethylene Glycol (Miralax) 17 gm HSPRN PRN ORAL Constipation 10/31/19 13:45 11/30/19 13:44 Zolpidem Tartrate (Ambien) 5 mg HSPRN PRN ORAL Insomnia 10/31/19 13:45 11/07/19 13:44 Leti Cruz MD Nov 04, 2019 15:18
[2019-11-04 16:00] VITALS: BP 118/80
--- NOTE | 2019-11-04 18:36 | Internal Med Progress Note ---
Subjective Date of Service: Nov 04, 2019 Physician Name ZeniaTalat Attending Physician Carlos Garcia MD Current Medications Medications (Trade) Dose Ordered Sig/Brandon Route PRN Reason Start Time Stop Time Status Last Admin Dose Admin Acetaminophen (Tylenol) 650 mg Q4H PRN ORAL Mild Pain/Temp > 100.5 11/03/19 11:30 11/30/19 11:29 11/03/19 10:39 Acyclovir (Zovirax) 800 mg DAILY ORAL 11/02/19 09:00 12/02/19 08:59 11/04/19 08:56 Baclofen (Lioresal) 10 mg EVERY 8 HOURS ORAL 10/31/19 22:00 11/30/19 21:59 11/04/19 12:54 Carbidopa/Levodopa (Sinemet /) 2 tab EVERY 4 HOURS ORAL 11/01/19 17:00 11/30/19 17:59 11/04/19 17:41 Dextrose (Dextrose 50%) 25 ml Q30M PRN IV Hypoglycemia 10/31/19 13:45 01/29/20 13:44 Dextrose (Dextrose 50%) 50 ml Q30M PRN IV Hypoglycemia 10/31/19 13:45 01/29/20 13:44 Enalapril Maleate (Vasotec) 10 mg DAILY ORAL 11/01/19 09:00 12/01/19 08:59 11/04/19 08:56 Ondansetron HCl (Zofran) 4 mg Q6H PRN IVP Nausea & Vomiting 10/31/19 13:45 11/30/19 13:44 Pantoprazole (Protonix) 40 mg DAILY ORAL 11/03/19 11:30 12/03/19 11:29 11/04/19 08:56 Patient Own Medication (Patient's Own Med) 1 ea DAILY ORAL 11/02/19 09:00 12/02/19 08:59 11/04/19 08:56 Patient Own Medication (Patient's Own Med) 1 ea DAILY ORAL 11/02/19 09:00 12/02/19 08:59 11/04/19 08:56 Polyethylene Glycol (Miralax) 17 gm HSPRN PRN ORAL Constipation 10/31/19 13:45 11/30/19 13:44 Zolpidem Tartrate (Ambien) 5 mg HSPRN PRN ORAL Insomnia 10/31/19 13:45 11/07/19 13:44 Allergies: Coded Allergies: ABACAVIR (Verified Allergy, Unknown, ZIAGEN, 05/31/16) EFAVIRENZ (Verified Allergy, Unknown, SUSTIVA, 05/31/16) ROS Limited/Unobtainable: No Constitutional: Reports: weakness HEENT: Reports: no symptoms Cardiovascular: Reports: no symptoms Respiratory: Reports: no symptoms Gastrointestinal/Abdominal: Reports: no symptoms Genitourinary: Reports: no symptoms Neurologic/Psychiatric: Reports: no symptoms Subjective 64 YO M admitted with generalized weakness and fall injury. Cover for Int med- Dr Garcia Objective Last Vital Signs Date Time Temp Pulse Resp B/P (MAP) Pulse Ox O2 Delivery O2 Flow Rate FiO2 11/04/19 16:00 97.4 87 18 118/80 (93) 100 11/04/19 08:23 Room Air Laboratory Tests Test 11/04/19 06:15 White Blood Count 9.2 K/UL (4.8-10.8) Red Blood Count 4.62 M/UL (4.70-6.10) L Hemoglobin 14.0 G/DL (14.2-18.0) L Hematocrit 41.3 % (42.0-52.0) L Mean Corpuscular Volume 89 FL (80-99) Mean Corpuscular Hemoglobin 30.3 PG (27.0-31.0) Mean Corpuscular Hemoglobin Concent 33.9 G/DL (32.0-36.0) Red Cell Distribution Width 12.8 % (11.6-14.8) Platelet Count 309 K/UL (150-450) Mean Platelet Volume 5.5 FL (6.5-10.1) L Neutrophils (%) (Auto) 56.5 % (45.0-75.0) Lymphocytes (%) (Auto) 30.3 % (20.0-45.0) Monocytes (%) (Auto) 9.4 % (1.0-10.0) Eosinophils (%) (Auto) 3.0 % (0.0-3.0) Basophils (%) (Auto) 0.9 % (0.0-2.0) Sodium Level 137 MMOL/L (136-145) Potassium Level 4.4 MMOL/L (3.5-5.1) Chloride Level 101 MMOL/L (98-107) Carbon Dioxide Level 26 MMOL/L (21-32) Anion Gap 10 mmol/L (5-15) Blood Urea Nitrogen 27 mg/dL (7-18) H Creatinine 1.1 MG/DL (0.55-1.30) Estimat Glomerular Filtration Rate > 60 mL/min (>60) Glucose Level 95 MG/DL (74-106) Calcium Level 9.3 MG/DL (8.5-10.1) Intake and Output 11/03/19 11/04/19 19:00 07:00 Intake Total 1200 ml 120 ml Output Total 1400 ml 725 ml Balance -200 ml -605 ml Intake Oral 1200 ml 120 ml Output Urine Total 1400 ml 725 ml Objective PHYSICAL EXAMINATION: GENERAL: The patient is a well-developed and well-nourished male, in no apparent distress. HEENT: Eyes, pupils are equal and responsive to light and accommodation. Extraocular movements are intact. NECK: Supple without lymphadenopathy. CHEST: Lungs are clear to auscultation bilaterally without wheezes or rales. CARDIOVASCULAR: Regular rhythm and rate. S1 and S2 are normal without murmurs, rubs, or gallops. ABDOMEN: Soft, nontender, and nondistended. Positive bowel sounds. No evidence of hepatosplenomegaly. Currently, no rebound or guarding noted. EXTREMITIES: Negative for clubbing, cyanosis, or edema. RECTAL/GENITAL: Not performed. NEUROLOGIC: Cranial nerves II through XII are grossly intact without focal deficits Assessment/Plan Assessment/Plan ASSESSMENT: This is a 64-year-old male. 1. Generalized weakness. 2. Contusion of the left elbow. 3. Contusion of the left protestant. 4. Parkinson disease. 5. Cerebrovascular disease. 6. Hypertension. 7. Hypercholesterolemia. 8. HIV. TREATMENT: 1. Generalized weakness. This may be secondary to transient ischemic attack. An initial CT scan of the brain was reported as within normal limits. Await neurology=Dr Deng 2. Parkinson disease. Continue Sinemet as above. 3. Abrasion of the left elbow and left protestant. This was evaluated in the emergency room. 4. Hypertension. Continue enalapril as above. 5. Hypercholesterolemia. Continue fenofibrate as above. 6. HIV. Continue Genvoya and entecavir as above. Talta Knutson MD Nov 04, 2019 18:36
--- NOTE | 2019-11-04 19:24 | Infectious Diseases Prog Note ---
Assessment/Plan Assessment/Plan ASSESSMENT: This is a 64-year-old male. HIV.( CD4> 400, Vl , 20 ) Hep B Hx of .Parkinson disease. Hx of Cerebrovascular disease Generalized weakness. - Brain MRI : No acute intracranial hemorrhage or ischemia. Contusion of the left elbow. Contusion of the left pentecostal. Hypertension. Hypercholesterolemia. P: Continue Genvoya and entecavir , Acyclovir ( pt may take home meds , ELEAZAR RN) Monitor CBC, CMP Monitor CXR Monitor Cx ELEAZAR RN Thank you, we will follow Subjective Allergies: Coded Allergies: ABACAVIR (Verified Allergy, Unknown, ZIAGEN, 05/31/16) EFAVIRENZ (Verified Allergy, Unknown, SUSTIVA, 05/31/16) Subjective Afebrile. no complaints. Objective Vital Signs Last 24 Hour Vital Signs Date Time Temp Pulse Resp B/P (MAP) Pulse Ox O2 Delivery O2 Flow Rate FiO2 11/04/19 16:00 97.4 87 18 118/80 (93) 100 11/04/19 12:00 98.1 82 20 122/82 (95) 99 11/04/19 08:56 120/87 11/04/19 08:23 Room Air 11/04/19 08:00 97.0 82 18 120/87 (98) 99 11/04/19 04:00 97.8 88 19 122/87 (99) 97 11/04/19 00:00 98.9 80 20 126/76 (93) 97 11/03/19 21:00 Room Air 11/03/19 20:00 98.2 81 20 110/67 (81) 100 Height (Feet): 5 Height (Inches): 5.00 Weight (Pounds): 130 Objective Gen: NAD. thin frail man HEENt: anicteric sclera. MMM CV: RRR Resp: unlabored. equal chest rise. no wheezes Abd: nondistended. soft. Neuro: awake. answers simple questions Laboratory Tests Test 11/04/19 06:15 White Blood Count 9.2 K/UL (4.8-10.8) Red Blood Count 4.62 M/UL (4.70-6.10) L Hemoglobin 14.0 G/DL (14.2-18.0) L Hematocrit 41.3 % (42.0-52.0) L Mean Corpuscular Volume 89 FL (80-99) Mean Corpuscular Hemoglobin 30.3 PG (27.0-31.0) Mean Corpuscular Hemoglobin Concent 33.9 G/DL (32.0-36.0) Red Cell Distribution Width 12.8 % (11.6-14.8) Platelet Count 309 K/UL (150-450) Mean Platelet Volume 5.5 FL (6.5-10.1) L Neutrophils (%) (Auto) 56.5 % (45.0-75.0) Lymphocytes (%) (Auto) 30.3 % (20.0-45.0) Monocytes (%) (Auto) 9.4 % (1.0-10.0) Eosinophils (%) (Auto) 3.0 % (0.0-3.0) Basophils (%) (Auto) 0.9 % (0.0-2.0) Sodium Level 137 MMOL/L (136-145) Potassium Level 4.4 MMOL/L (3.5-5.1) Chloride Level 101 MMOL/L (98-107) Carbon Dioxide Level 26 MMOL/L (21-32) Anion Gap 10 mmol/L (5-15) Blood Urea Nitrogen 27 mg/dL (7-18) H Creatinine 1.1 MG/DL (0.55-1.30) Estimat Glomerular Filtration Rate > 60 mL/min (>60) Glucose Level 95 MG/DL (74-106) Calcium Level 9.3 MG/DL (8.5-10.1) Current Medications Medications (Trade) Dose Ordered Sig/Brandon Route PRN Reason Start Time Stop Time Status Last Admin Dose Admin Acetaminophen (Tylenol) 650 mg Q4H PRN ORAL Mild Pain/Temp > 100.5 11/03/19 11:30 11/30/19 11:29 11/03/19 10:39 Acyclovir (Zovirax) 800 mg DAILY ORAL 11/02/19 09:00 12/02/19 08:59 11/04/19 08:56 Baclofen (Lioresal) 10 mg EVERY 8 HOURS ORAL 10/31/19 22:00 11/30/19 21:59 11/04/19 12:54 Carbidopa/Levodopa (Sinemet 25/100) 2 tab EVERY 4 HOURS ORAL 11/01/19 17:00 11/30/19 17:59 11/04/19 17:41 Dextrose (Dextrose 50%) 25 ml Q30M PRN IV Hypoglycemia 10/31/19 13:45 01/29/20 13:44 Dextrose (Dextrose 50%) 50 ml Q30M PRN IV Hypoglycemia 10/31/19 13:45 01/29/20 13:44 Enalapril Maleate (Vasotec) 10 mg DAILY ORAL 11/01/19 09:00 12/01/19 08:59 11/04/19 08:56 Ondansetron HCl (Zofran) 4 mg Q6H PRN IVP Nausea & Vomiting 10/31/19 13:45 11/30/19 13:44 Pantoprazole (Protonix) 40 mg DAILY ORAL 11/03/19 11:30 12/03/19 11:29 11/04/19 08:56 Patient Own Medication (Patient's Own Med) 1 ea DAILY ORAL 11/02/19 09:00 12/02/19 08:59 11/04/19 08:56 Patient Own Medication (Patient's Own Med) 1 ea DAILY ORAL 11/02/19 09:00 12/02/19 08:59 11/04/19 08:56 Polyethylene Glycol (Miralax) 17 gm HSPRN PRN ORAL Constipation 10/31/19 13:45 11/30/19 13:44 Zolpidem Tartrate (Ambien) 5 mg HSPRN PRN ORAL Insomnia 10/31/19 13:45 11/07/19 13:44 Chan Sandoval MD Nov 04, 2019 19:24
[2019-11-04 20:00] VITALS: BP 110/70
[2019-11-05] VITALS: BP 114/67
[2019-11-05] MEDS: Levodopa/Carbidopa 25/100 tab ORAL SCH ×6 (00:48→20:34)
[2019-11-05 04:00] VITALS: BP 115/70
[2019-11-05 05:41] LABS: BASOPHILS % (AUTO) 0.8 % (0.0-2.0); HEMATOCRIT 41.2 % (42.0-52.0); HEMOGLOBIN 14.1 G/DL (14.2-18.0); LYMPHOCYTES % (AUTO) 35.2 % (20.0-45.0); MEAN CORPUSCULAR VOLUME 90 FL (80-99); PLATELET COUNT 301 K/UL (150-450); RED BLOOD COUNT 4.59 M/UL (4.70-6.10); RED CELL DISTRIBUTION WIDTH 13.1 % (11.6-14.8); WHITE BLOOD COUNT 7.8 K/UL (4.8-10.8)
[2019-11-05 05:48] LABS: ANION GAP 9 mmol/L (5-15); BLOOD UREA NITROGEN 27 mg/dL (7-18); CALCIUM 9.1 MG/DL (8.5-10.1); CARBON DIOXIDE 27 MMOL/L (21-32); CHLORIDE 102 MMOL/L (98-107); CREATININE 1.1 MG/DL (0.55-1.30); POTASSIUM 4.2 MMOL/L (3.5-5.1); SODIUM 138 MMOL/L (136-145)
[2019-11-05 08:00] VITALS: BP 113/80
[2019-11-05] MEDS: ENTECAVIR 1 MG ORAL SCH ×2 (08:18→08:27)
[2019-11-05 12:00] VITALS: BP 131/82
--- NOTE | 2019-11-05 12:11 | Pulmonology Progress Note ---
Assessment/Plan Problems: (1) Frequent falls (2) Parkinson disease (3) HIV (human immunodeficiency virus infection) (4) Homelessness (5) Cerebral vascular disease Assessment/Plan MRI of brain reviewed. chronic atherovascular disease awaiting neuro consult risk stratification for recurrent CVA neurology evaluation, Dr Deng called pt/ot ID to manage HIV meds, ID consult appreciated continue and adjust Parkinson meds social service consult Subjective ROS Limited/Unobtainable: No Constitutional: Reports: no symptoms HEENT: Repors: no symptoms Allergies: Coded Allergies: ABACAVIR (Verified Allergy, Unknown, ZIAGEN, 05/31/16) EFAVIRENZ (Verified Allergy, Unknown, SUSTIVA, 05/31/16) Objective Last 24 Hour Vital Signs Date Time Temp Pulse Resp B/P (MAP) Pulse Ox O2 Delivery O2 Flow Rate FiO2 11/05/19 09:16 Room Air 11/05/19 08:23 131/84 11/05/19 08:00 97.1 21 113/80 (91) 96 11/05/19 04:00 98.1 80 17 115/70 (85) 80 11/05/19 00:00 97.7 81 18 114/67 (83) 97 11/04/19 21:00 Room Air 11/04/19 20:00 98.0 81 17 110/70 (83) 97 11/04/19 16:00 97.4 87 18 118/80 (93) 100 Intake and Output 11/04/19 11/05/19 19:00 07:00 Intake Total 300 ml 250 ml Output Total 600 ml 500 ml Balance -300 ml -250 ml Intake Oral 300 ml 250 ml Output Urine Total 600 ml 500 ml Objective General Appearance: WD/WN HEENT: normocephalic Respiratory/Chest: chest wall non-tender, lungs clear Cardiovascular: normal rate, regular rhythm Abdomen: normal bowel sounds, no organomegaly Extremities: no cyanosis Skin: no ulcers 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 Laboratory Tests 11/05/19 05:05: White Blood Count 7.8, Red Blood Count 4.59L, Hemoglobin 14.1L, Hematocrit 41.2L , Mean Corpuscular Volume 90, Mean Corpuscular Hemoglobin 30.6, Mean Corpuscular Hemoglobin Concent 34.1, Red Cell Distribution Width 13.1, Platelet Count 301, Mean Platelet Volume 6.1L, Neutrophils (%) (Auto) 51.0, Lymphocytes ( %) (Auto) 35.2, Monocytes (%) (Auto) 10.0, Eosinophils (%) (Auto) 3.0, Basophils (%) (Auto) 0.8, Sodium Level 138, Potassium Level 4.2, Chloride Level 102, Carbon Dioxide Level 27, Anion Gap 9, Blood Urea Nitrogen 27H, Creatinine 1.1, Estimat Glomerular Filtration Rate > 60, Glucose Level 94, Calcium Level 9.1 Current Medications Medications (Trade) Dose Ordered Sig/Brandon Route PRN Reason Start Time Stop Time Status Last Admin Dose Admin Acetaminophen (Tylenol) 650 mg Q4H PRN ORAL Mild Pain/Temp > 100.5 11/03/19 11:30 11/30/19 11:29 11/03/19 10:39 Acyclovir (Zovirax) 800 mg DAILY ORAL 11/02/19 09:00 12/02/19 08:59 11/05/19 08:17 Baclofen (Lioresal) 10 mg EVERY 8 HOURS ORAL 10/31/19 22:00 11/30/19 21:59 11/05/19 05:44 Carbidopa/Levodopa (Sinemet 25/100) 2 tab EVERY 4 HOURS ORAL 11/01/19 17:00 11/30/19 17:59 11/05/19 08:17 Dextrose (Dextrose 50%) 25 ml Q30M PRN IV Hypoglycemia 10/31/19 13:45 01/29/20 13:44 Dextrose (Dextrose 50%) 50 ml Q30M PRN IV Hypoglycemia 10/31/19 13:45 01/29/20 13:44 Enalapril Maleate (Vasotec) 10 mg DAILY ORAL 11/01/19 09:00 12/01/19 08:59 11/05/19 08:23 Ondansetron HCl (Zofran) 4 mg Q6H PRN IVP Nausea & Vomiting 10/31/19 13:45 11/30/19 13:44 Pantoprazole (Protonix) 40 mg DAILY ORAL 11/03/19 11:30 12/03/19 11:29 11/05/19 08:16 Patient Own Medication (Patient's Own Med) 1 ea DAILY ORAL 11/02/19 09:00 12/02/19 08:59 11/05/19 08:27 Patient Own Medication (Patient's Own Med) 1 ea DAILY ORAL 11/02/19 09:00 12/02/19 08:59 11/05/19 08:27 Polyethylene Glycol (Miralax) 17 gm HSPRN PRN ORAL Constipation 10/31/19 13:45 11/30/19 13:44 Zolpidem Tartrate (Ambien) 5 mg HSPRN PRN ORAL Insomnia 10/31/19 13:45 11/07/19 13:44 Leti Cruz MD Nov 05, 2019 12:11
--- NOTE | 2019-11-05 14:17 | Infectious Diseases Prog Note ---
Assessment/Plan Assessment/Plan ASSESSMENT: This is a 64-year-old male. HIV.( CD4> 400, Vl , 20 ) Hep B Hx of .Parkinson disease. Hx of Cerebrovascular disease Generalized weakness. - Brain MRI : No acute intracranial hemorrhage or ischemia. Contusion of the left elbow. Contusion of the left protestant. Hypertension. Hypercholesterolemia. P: Continue Genvoya and entecavir , Acyclovir ( pt may take home meds , ELEAZAR RN) Monitor CBC, CMP Monitor CXR Monitor Cx ELEAZAR RN Thank you, we will follow Subjective Allergies: Coded Allergies: ABACAVIR (Verified Allergy, Unknown, ZIAGEN, 05/31/16) EFAVIRENZ (Verified Allergy, Unknown, SUSTIVA, 05/31/16) Subjective Afebrile. RA No leukocytosis No chills, cough, sob, abdominal pain Objective Vital Signs Last 24 Hour Vital Signs Date Time Temp Pulse Resp B/P (MAP) Pulse Ox O2 Delivery O2 Flow Rate FiO2 11/05/19 12:00 98.6 88 21 131/82 (98) 98 11/05/19 09:16 Room Air 11/05/19 08:23 131/84 11/05/19 08:00 97.1 21 113/80 (91) 96 11/05/19 04:00 98.1 80 17 115/70 (85) 80 11/05/19 00:00 97.7 81 18 114/67 (83) 97 11/04/19 21:00 Room Air 11/04/19 20:00 98.0 81 17 110/70 (83) 97 11/04/19 16:00 97.4 87 18 118/80 (93) 100 Height (Feet): 5 Height (Inches): 5.00 Weight (Pounds): 130 Objective Gen: NAD. thin frail man HEENt: anicteric sclera. MMM CV: RRR Resp: unlabored. equal chest rise. no wheezes Abd: nondistended. soft. Neuro: awake. answers questions appropriately Laboratory Tests Test 11/05/19 05:05 White Blood Count 7.8 K/UL (4.8-10.8) Red Blood Count 4.59 M/UL (4.70-6.10) L Hemoglobin 14.1 G/DL (14.2-18.0) L Hematocrit 41.2 % (42.0-52.0) L Mean Corpuscular Volume 90 FL (80-99) Mean Corpuscular Hemoglobin 30.6 PG (27.0-31.0) Mean Corpuscular Hemoglobin Concent 34.1 G/DL (32.0-36.0) Red Cell Distribution Width 13.1 % (11.6-14.8) Platelet Count 301 K/UL (150-450) Mean Platelet Volume 6.1 FL (6.5-10.1) L Neutrophils (%) (Auto) 51.0 % (45.0-75.0) Lymphocytes (%) (Auto) 35.2 % (20.0-45.0) Monocytes (%) (Auto) 10.0 % (1.0-10.0) Eosinophils (%) (Auto) 3.0 % (0.0-3.0) Basophils (%) (Auto) 0.8 % (0.0-2.0) Sodium Level 138 MMOL/L (136-145) Potassium Level 4.2 MMOL/L (3.5-5.1) Chloride Level 102 MMOL/L (98-107) Carbon Dioxide Level 27 MMOL/L (21-32) Anion Gap 9 mmol/L (5-15) Blood Urea Nitrogen 27 mg/dL (7-18) H Creatinine 1.1 MG/DL (0.55-1.30) Estimat Glomerular Filtration Rate > 60 mL/min (>60) Glucose Level 94 MG/DL (74-106) Calcium Level 9.1 MG/DL (8.5-10.1) Current Medications Medications (Trade) Dose Ordered Sig/Brandon Route PRN Reason Start Time Stop Time Status Last Admin Dose Admin Acetaminophen (Tylenol) 650 mg Q4H PRN ORAL Mild Pain/Temp > 100.5 11/03/19 11:30 11/30/19 11:29 11/03/19 10:39 Acyclovir (Zovirax) 800 mg DAILY ORAL 11/02/19 09:00 12/02/19 08:59 11/05/19 08:17 Baclofen (Lioresal) 10 mg EVERY 8 HOURS ORAL 10/31/19 22:00 11/30/19 21:59 11/05/19 13:50 Carbidopa/Levodopa (Sinemet 25/) 2 tab EVERY 4 HOURS ORAL 11/01/19 17:00 11/30/19 17:59 11/05/19 12:43 Dextrose (Dextrose 50%) 25 ml Q30M PRN IV Hypoglycemia 10/31/19 13:45 01/29/20 13:44 Dextrose (Dextrose 50%) 50 ml Q30M PRN IV Hypoglycemia 10/31/19 13:45 01/29/20 13:44 Enalapril Maleate (Vasotec) 10 mg DAILY ORAL 11/01/19 09:00 12/01/19 08:59 11/05/19 08:23 Ondansetron HCl (Zofran) 4 mg Q6H PRN IVP Nausea & Vomiting 10/31/19 13:45 11/30/19 13:44 Pantoprazole (Protonix) 40 mg DAILY ORAL 11/03/19 11:30 12/03/19 11:29 11/05/19 08:16 Patient Own Medication (Patient's Own Med) 1 ea DAILY ORAL 11/02/19 09:00 12/02/19 08:59 11/05/19 08:27 Patient Own Medication (Patient's Own Med) 1 ea DAILY ORAL 11/02/19 09:00 12/02/19 08:59 11/05/19 08:27 Polyethylene Glycol (Miralax) 17 gm HSPRN PRN ORAL Constipation 10/31/19 13:45 11/30/19 13:44 Zolpidem Tartrate (Ambien) 5 mg HSPRN PRN ORAL Insomnia 10/31/19 13:45 11/07/19 13:44 Chan Sandoval MD Nov 05, 2019 14:17
[2019-11-05 16:00] VITALS: BP 145/85
--- NOTE | 2019-11-05 16:01 | Internal Med Progress Note ---
Subjective Date of Service: Nov 05, 2019 Physician Name Knutson,Talat Attending Physician Carlos Garcia MD Current Medications Medications (Trade) Dose Ordered Sig/Brandon Route PRN Reason Start Time Stop Time Status Last Admin Dose Admin Acetaminophen (Tylenol) 650 mg Q4H PRN ORAL Mild Pain/Temp > 100.5 11/03/19 11:30 11/30/19 11:29 11/03/19 10:39 Acyclovir (Zovirax) 800 mg DAILY ORAL 11/02/19 09:00 12/02/19 08:59 11/05/19 08:17 Baclofen (Lioresal) 10 mg EVERY 8 HOURS ORAL 10/31/19 22:00 11/30/19 21:59 11/05/19 13:50 Carbidopa/Levodopa (Sinemet 25/) 2 tab EVERY 4 HOURS ORAL 11/01/19 17:00 11/30/19 17:59 11/05/19 12:43 Dextrose (Dextrose 50%) 25 ml Q30M PRN IV Hypoglycemia 10/31/19 13:45 01/29/20 13:44 Dextrose (Dextrose 50%) 50 ml Q30M PRN IV Hypoglycemia 10/31/19 13:45 01/29/20 13:44 Enalapril Maleate (Vasotec) 10 mg DAILY ORAL 11/01/19 09:00 12/01/19 08:59 11/05/19 08:23 Ondansetron HCl (Zofran) 4 mg Q6H PRN IVP Nausea & Vomiting 10/31/19 13:45 11/30/19 13:44 Pantoprazole (Protonix) 40 mg DAILY ORAL 11/03/19 11:30 12/03/19 11:29 11/05/19 08:16 Patient Own Medication (Patient's Own Med) 1 ea DAILY ORAL 11/02/19 09:00 12/02/19 08:59 11/05/19 08:27 Patient Own Medication (Patient's Own Med) 1 ea DAILY ORAL 11/02/19 09:00 12/02/19 08:59 11/05/19 08:27 Polyethylene Glycol (Miralax) 17 gm HSPRN PRN ORAL Constipation 10/31/19 13:45 11/30/19 13:44 Zolpidem Tartrate (Ambien) 5 mg HSPRN PRN ORAL Insomnia 10/31/19 13:45 11/07/19 13:44 Allergies: Coded Allergies: ABACAVIR (Verified Allergy, Unknown, ZIAGEN, 05/31/16) EFAVIRENZ (Verified Allergy, Unknown, SUSTIVA, 05/31/16) ROS Limited/Unobtainable: No Constitutional: Reports: no symptoms HEENT: Reports: no symptoms Cardiovascular: Reports: no symptoms Respiratory: Reports: no symptoms Gastrointestinal/Abdominal: Reports: no symptoms Genitourinary: Reports: no symptoms Neurologic/Psychiatric: Reports: no symptoms Subjective 64 YO M admitted with generalized weakness and fall injury. Cover for Int med- Dr Garcia Objective Last Vital Signs Date Time Temp Pulse Resp B/P (MAP) Pulse Ox O2 Delivery O2 Flow Rate FiO2 11/05/19 12:00 98.6 88 21 131/82 (98) 98 11/05/19 09:16 Room Air Laboratory Tests Test 11/05/19 05:05 White Blood Count 7.8 K/UL (4.8-10.8) Red Blood Count 4.59 M/UL (4.70-6.10) L Hemoglobin 14.1 G/DL (14.2-18.0) L Hematocrit 41.2 % (42.0-52.0) L Mean Corpuscular Volume 90 FL (80-99) Mean Corpuscular Hemoglobin 30.6 PG (27.0-31.0) Mean Corpuscular Hemoglobin Concent 34.1 G/DL (32.0-36.0) Red Cell Distribution Width 13.1 % (11.6-14.8) Platelet Count 301 K/UL (150-450) Mean Platelet Volume 6.1 FL (6.5-10.1) L Neutrophils (%) (Auto) 51.0 % (45.0-75.0) Lymphocytes (%) (Auto) 35.2 % (20.0-45.0) Monocytes (%) (Auto) 10.0 % (1.0-10.0) Eosinophils (%) (Auto) 3.0 % (0.0-3.0) Basophils (%) (Auto) 0.8 % (0.0-2.0) Sodium Level 138 MMOL/L (136-145) Potassium Level 4.2 MMOL/L (3.5-5.1) Chloride Level 102 MMOL/L (98-107) Carbon Dioxide Level 27 MMOL/L (21-32) Anion Gap 9 mmol/L (5-15) Blood Urea Nitrogen 27 mg/dL (7-18) H Creatinine 1.1 MG/DL (0.55-1.30) Estimat Glomerular Filtration Rate > 60 mL/min (>60) Glucose Level 94 MG/DL (74-106) Calcium Level 9.1 MG/DL (8.5-10.1) Intake and Output 11/04/19 11/05/19 19:00 07:00 Intake Total 300 ml 250 ml Output Total 600 ml 500 ml Balance -300 ml -250 ml Intake Oral 300 ml 250 ml Output Urine Total 600 ml 500 ml Objective PHYSICAL EXAMINATION: GENERAL: The patient is a well-developed and well-nourished male, in no apparent distress. HEENT: Eyes, pupils are equal and responsive to light and accommodation. Extraocular movements are intact. NECK: Supple without lymphadenopathy. CHEST: Lungs are clear to auscultation bilaterally without wheezes or rales. CARDIOVASCULAR: Regular rhythm and rate. S1 and S2 are normal without murmurs, rubs, or gallops. ABDOMEN: Soft, nontender, and nondistended. Positive bowel sounds. No evidence of hepatosplenomegaly. Currently, no rebound or guarding noted. EXTREMITIES: Negative for clubbing, cyanosis, or edema. RECTAL/GENITAL: Not performed. NEUROLOGIC: Cranial nerves II through XII are grossly intact without focal deficits Assessment/Plan Assessment/Plan ASSESSMENT: This is a 64-year-old male. 1. Generalized weakness. 2. Contusion of the left elbow. 3. Contusion of the left voodoo. 4. Parkinson disease. 5. Cerebrovascular disease. 6. Hypertension. 7. Hypercholesterolemia. 8. HIV. TREATMENT: 1. Generalized weakness. This may be secondary to transient ischemic attack. An initial CT scan of the brain was reported as within normal limits. Await neurology=Dr Deng 2. Parkinson disease. Continue Sinemet as above. 3. Abrasion of the left elbow and left voodoo. This was evaluated in the emergency room. 4. Hypertension. Continue enalapril as above. 5. Hypercholesterolemia. Continue fenofibrate as above. 6. HIV. Continue Genvoya and entecavir as above. 7. Discharge planning: [facility] Talat Knutson MD Nov 05, 2019 16:01
[2019-11-05 20:00] VITALS: BP 135/83
[2019-11-06] VITALS: BP 119/91
[2019-11-06] MEDS: Levodopa/Carbidopa 25/100 tab ORAL SCH ×6 (00:48→20:33)
[2019-11-06 04:00] VITALS: BP 111/64
[2019-11-06 07:00] LABS: BASOPHILS % (AUTO) 0.8 % (0.0-2.0); HEMOGLOBIN 13.4 G/DL (14.2-18.0); LYMPHOCYTES % (AUTO) 32.6 % (20.0-45.0); MEAN CORPUSCULAR VOLUME 90 FL (80-99); MONOCYTES % (AUTO) 8.8 % (1.0-10.0); NEUTROPHILS % (AUTO) 54.9 % (45.0-75.0); PLATELET COUNT 281 K/UL (150-450); RED BLOOD COUNT 4.36 M/UL (4.70-6.10); RED CELL DISTRIBUTION WIDTH 12.8 % (11.6-14.8)
[2019-11-06 07:01] LABS: ANION GAP 11 mmol/L (5-15); BLOOD UREA NITROGEN 35 mg/dL (7-18); CALCIUM 9.2 MG/DL (8.5-10.1); CARBON DIOXIDE 25 MMOL/L (21-32); CHLORIDE 102 MMOL/L (98-107); CREATININE 1.1 MG/DL (0.55-1.30); SODIUM 138 MMOL/L (136-145)
[2019-11-06 08:00] VITALS: BP 136/72
[2019-11-06] MEDS: ENTECAVIR 1 MG ORAL SCH (08:59)
--- NOTE | 2019-11-06 11:23 | Internal Med Progress Note ---
Subjective Date of Service: Nov 06, 2019 Physician Name ZeniaTalat Attending Physician Carlos Garcia MD Current Medications Medications (Trade) Dose Ordered Sig/Brandon Route PRN Reason Start Time Stop Time Status Last Admin Dose Admin Acetaminophen (Tylenol) 650 mg Q4H PRN ORAL Mild Pain/Temp > 100.5 11/03/19 11:30 11/30/19 11:29 11/03/19 10:39 Acyclovir (Zovirax) 800 mg DAILY ORAL 11/02/19 09:00 12/02/19 08:59 11/06/19 08:38 Baclofen (Lioresal) 10 mg EVERY 8 HOURS ORAL 10/31/19 22:00 11/30/19 21:59 11/06/19 05:36 Carbidopa/Levodopa (Sinemet /) 2 tab EVERY 4 HOURS ORAL 11/01/19 17:00 11/30/19 17:59 11/06/19 08:38 Dextrose (Dextrose 50%) 25 ml Q30M PRN IV Hypoglycemia 10/31/19 13:45 01/29/20 13:44 Dextrose (Dextrose 50%) 50 ml Q30M PRN IV Hypoglycemia 10/31/19 13:45 01/29/20 13:44 Enalapril Maleate (Vasotec) 10 mg DAILY ORAL 11/01/19 09:00 12/01/19 08:59 11/06/19 08:38 Ondansetron HCl (Zofran) 4 mg Q6H PRN IVP Nausea & Vomiting 10/31/19 13:45 11/30/19 13:44 Pantoprazole (Protonix) 40 mg DAILY ORAL 11/03/19 11:30 12/03/19 11:29 11/06/19 08:38 Patient Own Medication (Patient's Own Med) 1 ea DAILY ORAL 11/02/19 09:00 12/02/19 08:59 11/06/19 08:59 Patient Own Medication (Patient's Own Med) 1 ea DAILY ORAL 11/02/19 09:00 12/02/19 08:59 11/06/19 08:59 Polyethylene Glycol (Miralax) 17 gm HSPRN PRN ORAL Constipation 10/31/19 13:45 11/30/19 13:44 Zolpidem Tartrate (Ambien) 5 mg HSPRN PRN ORAL Insomnia 10/31/19 13:45 11/07/19 13:44 Allergies: Coded Allergies: ABACAVIR (Verified Allergy, Unknown, ZIAGEN, 05/31/16) EFAVIRENZ (Verified Allergy, Unknown, SUSTIVA, 05/31/16) ROS Limited/Unobtainable: No Constitutional: Reports: no symptoms HEENT: Reports: no symptoms Cardiovascular: Reports: no symptoms Respiratory: Reports: no symptoms Gastrointestinal/Abdominal: Reports: no symptoms Genitourinary: Reports: no symptoms Neurologic/Psychiatric: Reports: no symptoms Subjective 64 YO M admitted with generalized weakness and fall injury. Cover for Int med- Dr Garcia Objective Last Vital Signs Date Time Temp Pulse Resp B/P (MAP) Pulse Ox O2 Delivery O2 Flow Rate FiO2 11/06/19 09:13 Room Air 11/06/19 08:38 132/72 11/06/19 08:00 98.3 70 20 96 Laboratory Tests Test 11/06/19 04:50 White Blood Count 7.0 K/UL (4.8-10.8) Red Blood Count 4.36 M/UL (4.70-6.10) L Hemoglobin 13.4 G/DL (14.2-18.0) L Hematocrit 39.0 % (42.0-52.0) L Mean Corpuscular Volume 90 FL (80-99) Mean Corpuscular Hemoglobin 30.8 PG (27.0-31.0) Mean Corpuscular Hemoglobin Concent 34.5 G/DL (32.0-36.0) Red Cell Distribution Width 12.8 % (11.6-14.8) Platelet Count 281 K/UL (150-450) Mean Platelet Volume 6.0 FL (6.5-10.1) L Neutrophils (%) (Auto) 54.9 % (45.0-75.0) Lymphocytes (%) (Auto) 32.6 % (20.0-45.0) Monocytes (%) (Auto) 8.8 % (1.0-10.0) Eosinophils (%) (Auto) 3.0 % (0.0-3.0) Basophils (%) (Auto) 0.8 % (0.0-2.0) Sodium Level 138 MMOL/L (136-145) Potassium Level 4.0 MMOL/L (3.5-5.1) Chloride Level 102 MMOL/L (98-107) Carbon Dioxide Level 25 MMOL/L (21-32) Anion Gap 11 mmol/L (5-15) Blood Urea Nitrogen 35 mg/dL (7-18) H Creatinine 1.1 MG/DL (0.55-1.30) Estimat Glomerular Filtration Rate > 60 mL/min (>60) Glucose Level 90 MG/DL (74-106) Calcium Level 9.2 MG/DL (8.5-10.1) Intake and Output 11/05/19 11/06/19 19:00 07:00 Intake Total 960 ml 880 ml Output Total 800 ml 1000 ml Balance 160 ml -120 ml Intake Oral 960 ml 880 ml Output Urine Total 800 ml 1000 ml # Voids 1 # Bowel Movements 1 Objective PHYSICAL EXAMINATION: GENERAL: The patient is a well-developed and well-nourished male, in no apparent distress. HEENT: Eyes, pupils are equal and responsive to light and accommodation. Extraocular movements are intact. NECK: Supple without lymphadenopathy. CHEST: Lungs are clear to auscultation bilaterally without wheezes or rales. CARDIOVASCULAR: Regular rhythm and rate. S1 and S2 are normal without murmurs, rubs, or gallops. ABDOMEN: Soft, nontender, and nondistended. Positive bowel sounds. No evidence of hepatosplenomegaly. Currently, no rebound or guarding noted. EXTREMITIES: Negative for clubbing, cyanosis, or edema. RECTAL/GENITAL: Not performed. NEUROLOGIC: Cranial nerves II through XII are grossly intact without focal deficits Assessment/Plan Assessment/Plan ASSESSMENT: This is a 64-year-old male. 1. Generalized weakness. 2. Contusion of the left elbow. 3. Contusion of the left muslim. 4. Parkinson disease. 5. Cerebrovascular disease. 6. Hypertension. 7. Hypercholesterolemia. 8. HIV. TREATMENT: 1. Generalized weakness. An initial CT scan of the brain was reported as within normal limits. 2. Parkinson disease. Continue Sinemet as above. 3. Abrasion of the left elbow and left muslim. This was evaluated in the emergency room. 4. Hypertension. Continue enalapril as above. 5. Hypercholesterolemia. Continue fenofibrate as above. 6. HIV. Continue Genvoya and entecavir as above. 7. Discharge planning: [facility] Talat Knutson MD Nov 06, 2019 11:23
[2019-11-06 12:00] VITALS: BP 114/67
--- NOTE | 2019-11-06 13:16 | Pulmonology Progress Note ---
Assessment/Plan Problems: (1) Frequent falls (2) Parkinson disease (3) HIV (human immunodeficiency virus infection) (4) Homelessness (5) Cerebral vascular disease Assessment/Plan MRI of brain reviewed. chronic atherovascular disease awaiting neuro consult risk stratification for recurrent CVA neurology evaluation, Dr Deng called pt/ot ID to manage HIV meds, ID consult appreciated continue and adjust Parkinson meds social service consult Subjective ROS Limited/Unobtainable: Yes Constitutional: Reports: no symptoms Allergies: Coded Allergies: ABACAVIR (Verified Allergy, Unknown, ZIAGEN, 05/31/16) EFAVIRENZ (Verified Allergy, Unknown, SUSTIVA, 05/31/16) Objective Last 24 Hour Vital Signs Date Time Temp Pulse Resp B/P (MAP) Pulse Ox O2 Delivery O2 Flow Rate FiO2 11/06/19 09:13 Room Air 11/06/19 08:38 132/72 11/06/19 08:00 98.3 70 20 136/72 (93) 96 11/06/19 04:00 97.3 78 18 111/64 (80) 96 11/06/19 00:00 97.9 82 18 119/91 (100) 97 11/05/19 21:00 Room Air 11/05/19 20:00 97.8 72 20 135/83 (100) 99 11/05/19 16:00 98.2 96 18 145/85 (105) 97 Intake and Output 11/05/19 11/06/19 18:59 06:59 Intake Total 960 ml 880 ml Output Total 800 ml 1000 ml Balance 160 ml -120 ml Intake Oral 960 ml 880 ml Output Urine Total 800 ml 1000 ml # Voids 1 # Bowel Movements 1 Objective General Appearance: WD/WN HEENT: normocephalic Respiratory/Chest: chest wall non-tender, lungs clear Cardiovascular: normal rate, regular rhythm Abdomen: normal bowel sounds, no organomegaly Extremities: no cyanosis Skin: no ulcers 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 Laboratory Tests 11/06/19 04:50: White Blood Count 7.0, Red Blood Count 4.36L, Hemoglobin 13.4L, Hematocrit 39.0L , Mean Corpuscular Volume 90, Mean Corpuscular Hemoglobin 30.8, Mean Corpuscular Hemoglobin Concent 34.5, Red Cell Distribution Width 12.8, Platelet Count 281, Mean Platelet Volume 6.0L, Neutrophils (%) (Auto) 54.9, Lymphocytes ( %) (Auto) 32.6, Monocytes (%) (Auto) 8.8, Eosinophils (%) (Auto) 3.0, Basophils (%) (Auto) 0.8, Sodium Level 138, Potassium Level 4.0, Chloride Level 102, Carbon Dioxide Level 25, Anion Gap 11, Blood Urea Nitrogen 35H, Creatinine 1.1, Estimat Glomerular Filtration Rate > 60, Glucose Level 90, Calcium Level 9.2 Current Medications Medications (Trade) Dose Ordered Sig/Brandon Route PRN Reason Start Time Stop Time Status Last Admin Dose Admin Acetaminophen (Tylenol) 650 mg Q4H PRN ORAL Mild Pain/Temp > 100.5 11/03/19 11:30 11/30/19 11:29 11/03/19 10:39 Acyclovir (Zovirax) 800 mg DAILY ORAL 11/02/19 09:00 12/02/19 08:59 11/06/19 08:38 Baclofen (Lioresal) 10 mg EVERY 8 HOURS ORAL 10/31/19 22:00 11/30/19 21:59 11/06/19 05:36 Carbidopa/Levodopa (Sinemet 25/100) 2 tab EVERY 4 HOURS ORAL 11/01/19 17:00 11/30/19 17:59 11/06/19 12:47 Dextrose (Dextrose 50%) 25 ml Q30M PRN IV Hypoglycemia 10/31/19 13:45 01/29/20 13:44 Dextrose (Dextrose 50%) 50 ml Q30M PRN IV Hypoglycemia 10/31/19 13:45 01/29/20 13:44 Enalapril Maleate (Vasotec) 10 mg DAILY ORAL 11/01/19 09:00 12/01/19 08:59 11/06/19 08:38 Ondansetron HCl (Zofran) 4 mg Q6H PRN IVP Nausea & Vomiting 10/31/19 13:45 11/30/19 13:44 Pantoprazole (Protonix) 40 mg DAILY ORAL 11/03/19 11:30 12/03/19 11:29 11/06/19 08:38 Patient Own Medication (Patient's Own Med) 1 ea DAILY ORAL 11/02/19 09:00 12/02/19 08:59 11/06/19 08:59 Patient Own Medication (Patient's Own Med) 1 ea DAILY ORAL 11/02/19 09:00 12/02/19 08:59 11/06/19 08:59 Polyethylene Glycol (Miralax) 17 gm HSPRN PRN ORAL Constipation 10/31/19 13:45 11/30/19 13:44 Zolpidem Tartrate (Ambien) 5 mg HSPRN PRN ORAL Insomnia 10/31/19 13:45 11/07/19 13:44 Leti Cruz MD Nov 06, 2019 13:16
[2019-11-06 16:01] VITALS: BP 142/77
--- NOTE | 2019-11-06 18:25 | Infectious Diseases Prog Note ---
Assessment/Plan Assessment/Plan ASSESSMENT: This is a 64-year-old male. HIV.( CD4> 400, Vl , 20 ) Hep B Hx of .Parkinson disease. Hx of Cerebrovascular disease Generalized weakness. - Brain MRI : No acute intracranial hemorrhage or ischemia. Contusion of the left elbow. Contusion of the left jainism. Hypertension. Hypercholesterolemia. P: Continue Genvoya and entecavir , Acyclovir ( pt may take home meds , ELEAZAR RN) Monitor CBC, CMP Monitor CXR Monitor Cx ELEAZAR RN Thank you, we will follow Subjective Allergies: Coded Allergies: ABACAVIR (Verified Allergy, Unknown, ZIAGEN, 05/31/16) EFAVIRENZ (Verified Allergy, Unknown, SUSTIVA, 05/31/16) Subjective Afebrile. RA feels well wants to go back [facility] his [facility] Objective Vital Signs Last 24 Hour Vital Signs Date Time Temp Pulse Resp B/P (MAP) Pulse Ox O2 Delivery O2 Flow Rate FiO2 11/06/19 16:01 98.6 96 21 142/77 (98) 95 11/06/19 12:00 98.3 77 21 114/67 (83) 96 11/06/19 09:13 Room Air 11/06/19 08:38 132/72 11/06/19 08:00 98.3 70 20 136/72 (93) 96 11/06/19 04:00 97.3 78 18 111/64 (80) 96 11/06/19 00:00 97.9 82 18 119/91 (100) 97 11/05/19 21:00 Room Air 11/05/19 20:00 97.8 72 20 135/83 (100) 99 Height (Feet): 5 Height (Inches): 5.00 Weight (Pounds): 122 Objective Gen: NAD. thin frail man HEENt: anicteric sclera. MMM CV: RRR. no rubs Resp: unlabored. equal chest rise. no wheezes Abd: nondistended. soft. Neuro: awake. answers questions appropriately Laboratory Tests Test 11/06/19 04:50 White Blood Count 7.0 K/UL (4.8-10.8) Red Blood Count 4.36 M/UL (4.70-6.10) L Hemoglobin 13.4 G/DL (14.2-18.0) L Hematocrit 39.0 % (42.0-52.0) L Mean Corpuscular Volume 90 FL (80-99) Mean Corpuscular Hemoglobin 30.8 PG (27.0-31.0) Mean Corpuscular Hemoglobin Concent 34.5 G/DL (32.0-36.0) Red Cell Distribution Width 12.8 % (11.6-14.8) Platelet Count 281 K/UL (150-450) Mean Platelet Volume 6.0 FL (6.5-10.1) L Neutrophils (%) (Auto) 54.9 % (45.0-75.0) Lymphocytes (%) (Auto) 32.6 % (20.0-45.0) Monocytes (%) (Auto) 8.8 % (1.0-10.0) Eosinophils (%) (Auto) 3.0 % (0.0-3.0) Basophils (%) (Auto) 0.8 % (0.0-2.0) Sodium Level 138 MMOL/L (136-145) Potassium Level 4.0 MMOL/L (3.5-5.1) Chloride Level 102 MMOL/L (98-107) Carbon Dioxide Level 25 MMOL/L (21-32) Anion Gap 11 mmol/L (5-15) Blood Urea Nitrogen 35 mg/dL (7-18) H Creatinine 1.1 MG/DL (0.55-1.30) Estimat Glomerular Filtration Rate > 60 mL/min (>60) Glucose Level 90 MG/DL (74-106) Calcium Level 9.2 MG/DL (8.5-10.1) Current Medications Medications (Trade) Dose Ordered Sig/Brandon Route PRN Reason Start Time Stop Time Status Last Admin Dose Admin Acetaminophen (Tylenol) 650 mg Q4H PRN ORAL Mild Pain/Temp > 100.5 11/03/19 11:30 11/30/19 11:29 11/03/19 10:39 Acyclovir (Zovirax) 800 mg DAILY ORAL 11/02/19 09:00 12/02/19 08:59 11/06/19 08:38 Baclofen (Lioresal) 10 mg EVERY 8 HOURS ORAL 10/31/19 22:00 11/30/19 21:59 11/06/19 13:49 Carbidopa/Levodopa (Sinemet 25/100) 2 tab EVERY 4 HOURS ORAL 11/01/19 17:00 11/30/19 17:59 11/06/19 16:53 Dextrose (Dextrose 50%) 25 ml Q30M PRN IV Hypoglycemia 10/31/19 13:45 01/29/20 13:44 Dextrose (Dextrose 50%) 50 ml Q30M PRN IV Hypoglycemia 10/31/19 13:45 01/29/20 13:44 Enalapril Maleate (Vasotec) 10 mg DAILY ORAL 11/01/19 09:00 12/01/19 08:59 11/06/19 08:38 Ondansetron HCl (Zofran) 4 mg Q6H PRN IVP Nausea & Vomiting 10/31/19 13:45 11/30/19 13:44 Pantoprazole (Protonix) 40 mg DAILY ORAL 11/03/19 11:30 12/03/19 11:29 11/06/19 08:38 Patient Own Medication (Patient's Own Med) 1 ea DAILY ORAL 11/02/19 09:00 12/02/19 08:59 11/06/19 08:59 Patient Own Medication (Patient's Own Med) 1 ea DAILY ORAL 11/02/19 09:00 12/02/19 08:59 11/06/19 08:59 Polyethylene Glycol (Miralax) 17 gm HSPRN PRN ORAL Constipation 10/31/19 13:45 11/30/19 13:44 Zolpidem Tartrate (Ambien) 5 mg HSPRN PRN ORAL Insomnia 10/31/19 13:45 11/07/19 13:44 Chan Sandoval MD Nov 06, 2019 18:25
[2019-11-06 20:00] VITALS: BP 111/74
[2019-11-07] VITALS: BP 102/66
[2019-11-07] MEDS: Levodopa/Carbidopa 25/100 tab ORAL SCH ×4 (00:46→13:49)
[2019-11-07 04:00] VITALS: BP 118/78
[2019-11-07] MEDS ORDERED: TYLENOL EXTRA500 MG ORAL (06:25)
[2019-11-07 08:00] VITALS: BP 99/67
[2019-11-07 08:20] LABS: BASOPHILS % (AUTO) 0.6 % (0.0-2.0); EOSINOPHILS % (AUTO) 3.6 % (0.0-3.0); HEMATOCRIT 39.1 % (42.0-52.0); HEMOGLOBIN 13.3 G/DL (14.2-18.0); LYMPHOCYTES % (AUTO) 39.3 % (20.0-45.0); MEAN CORPUSCULAR VOLUME 89 FL (80-99); NEUTROPHILS % (AUTO) 47.5 % (45.0-75.0); PLATELET COUNT 270 K/UL (150-450); RED BLOOD COUNT 4.39 M/UL (4.70-6.10); RED CELL DISTRIBUTION WIDTH 12.9 % (11.6-14.8); WHITE BLOOD COUNT 6.8 K/UL (4.8-10.8)
[2019-11-07] MEDS: ENTECAVIR 1 MG ORAL SCH (08:41)
[2019-11-07 12:00] VITALS: BP 103/72
--- NOTE | 2019-11-07 12:31 | Pulmonology Progress Note ---
Assessment/Plan Problems: (1) Frequent falls (2) Parkinson disease (3) HIV (human immunodeficiency virus infection) (4) Homelessness (5) Cerebral vascular disease Assessment/Plan MRI of brain reviewed. chronic atherovascular disease awaiting neuro appreciated risk stratification for recurrent CVA pt/ot ID to manage HIV meds, ID consult appreciated social service consult dc planning in progress. Subjective ROS Limited/Unobtainable: No Constitutional: Reports: no symptoms HEENT: Repors: no symptoms Respiratory: Reports: no symptoms Allergies: Coded Allergies: ABACAVIR (Verified Allergy, Unknown, ZIAGEN, 05/31/16) EFAVIRENZ (Verified Allergy, Unknown, SUSTIVA, 05/31/16) Objective Last 24 Hour Vital Signs Date Time Temp Pulse Resp B/P (MAP) Pulse Ox O2 Delivery O2 Flow Rate FiO2 11/07/19 12:00 97.6 87 20 103/72 (82) 99 11/07/19 09:00 Room Air 11/07/19 08:52 99/67 11/07/19 08:00 97.5 89 20 99/67 (78) 98 11/07/19 04:00 97.6 70 18 118/78 (91) 95 11/07/19 00:00 97.4 81 18 102/66 (78) 96 11/06/19 21:00 Room Air 11/06/19 20:00 97.3 76 20 111/74 (86) 95 11/06/19 16:01 98.6 96 21 142/77 (98) 95 Intake and Output 11/06/19 11/07/19 19:00 07:00 Intake Total 1200 ml 550 ml Output Total 800 ml 1300 ml Balance 400 ml -750 ml Intake Oral 1200 ml 550 ml Output Urine Total 800 ml 1300 ml Objective General Appearance: WD/WN HEENT: normocephalic Respiratory/Chest: chest wall non-tender, lungs clear Cardiovascular: normal rate, regular rhythm Abdomen: normal bowel sounds, no organomegaly Extremities: no cyanosis Skin: no ulcers 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 Laboratory Tests 11/07/19 04:50: White Blood Count 6.8, Red Blood Count 4.39L, Hemoglobin 13.3L, Hematocrit 39.1L , Mean Corpuscular Volume 89, Mean Corpuscular Hemoglobin 30.3, Mean Corpuscular Hemoglobin Concent 34.0, Red Cell Distribution Width 12.9, Platelet Count 270, Mean Platelet Volume 5.8L, Neutrophils (%) (Auto) 47.5, Lymphocytes ( %) (Auto) 39.3, Monocytes (%) (Auto) 9.0, Eosinophils (%) (Auto) 3.6H, Basophils (%) (Auto) 0.6 Current Medications Medications (Trade) Dose Ordered Sig/Brandon Route PRN Reason Start Time Stop Time Status Last Admin Dose Admin Acetaminophen (Tylenol) 650 mg Q4H PRN ORAL Mild Pain/Temp > 100.5 11/03/19 11:30 11/30/19 11:29 11/03/19 10:39 Acyclovir (Zovirax) 800 mg DAILY ORAL 11/02/19 09:00 12/02/19 08:59 11/07/19 08:45 Baclofen (Lioresal) 10 mg EVERY 8 HOURS ORAL 10/31/19 22:00 11/30/19 21:59 11/07/19 05:49 Carbidopa/Levodopa (Sinemet 25/100) 2 tab EVERY 4 HOURS ORAL 11/01/19 17:00 11/30/19 17:59 11/07/19 08:44 Dextrose (Dextrose 50%) 25 ml Q30M PRN IV Hypoglycemia 10/31/19 13:45 01/29/20 13:44 Dextrose (Dextrose 50%) 50 ml Q30M PRN IV Hypoglycemia 10/31/19 13:45 01/29/20 13:44 Enalapril Maleate (Vasotec) 10 mg DAILY ORAL 11/01/19 09:00 12/01/19 08:59 11/06/19 08:38 Ondansetron HCl (Zofran) 4 mg Q6H PRN IVP Nausea & Vomiting 10/31/19 13:45 11/30/19 13:44 Pantoprazole (Protonix) 40 mg DAILY ORAL 11/03/19 11:30 12/03/19 11:29 11/07/19 08:42 Patient Own Medication (Patient's Own Med) 1 ea DAILY ORAL 11/02/19 09:00 12/02/19 08:59 11/07/19 08:41 Patient Own Medication (Patient's Own Med) 1 ea DAILY ORAL 11/02/19 09:00 12/02/19 08:59 4/2/20 08:42 Polyethylene Glycol (Miralax) 17 gm HSPRN PRN ORAL Constipation 10/31/19 13:45 11/30/19 13:44 Zolpidem Tartrate (Ambien) 5 mg HSPRN PRN ORAL Insomnia 10/31/19 13:45 11/07/19 13:44 Leti Cruz MD Nov 07, 2019 12:31
--- NOTE | 2019-11-07 19:00 | Consultation ---
DATE OF CONSULTATION: 11/07/2019 NEUROLOGICAL CONSULTATION CONSULTING PHYSICIAN: Juancarlos Deng M.D. CHIEF COMPLAINT: This 64-year-old right-handed man was admitted because of generalized weakness, unable to care for himself. I was asked to see the patient because of his Parkinson disease. 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 He has had Parkinson disease at least for 7 years. He used to see Dr. Duane Tenorio, but has not seen him in many months. The last time was about 6 to 10 months ago. The patient states that he may have stopped taking his medicine about a week ago, although it is a little unclear. He is on Sinemet 25/100 two tablets t.i.d., aspirin 81 mg, baclofen 10 mg, acyclovir 400 mg daily, levodopa/carbidopa ER 50/200 one tablet twice a day, Artane 2 mg twice a day, and Entecavir 0.5 mg 2 tablets daily. The patient has been admitted here many times for his Parkinson's disease. The patient was admitted on 03/11/2016 and discharged on 03/14/2016 for possible stroke. He had a CT scan of the brain at that time, which revealed probable old lacunar infarct in the right ganglion chains and microangiopathic ischemic changes. The patient does walk apparently with a walker. Had generalized weakness and fell. The patient had a CT scan of the brain revealed old lacunar infarcts bilaterally in the basal ganglia and mild atrophy of the brain. He had an MRI scan of the brain on 11/01/2019, which revealed chronic small vessel ischemic changes. There is no mention of strokes. The patient had an elbow x-ray on the left side revealed no acute changes. He was complaining of elbow pain. The patient is mildly anemic on admission with a normal white count, normal platelets, and low indices. His chemistries revealed an elevated chloride of 109, BUN of 24, creatinine of 1. Liver function tests were actually decreased, but he also had a low albumin. His TSH is 1.207. Troponins were normal. The patient's urinalysis is negative. PT and PTT were normal. His tremors with the Parkinson's is mostly on the right side. He does not drink, smoke, or take illegal drugs. He has no history of head injury. The patient had a stroke 30 years ago with right-sided weakness. He denies any memory loss. He has some dysphagia. His hearing is good. There is no tinnitus or significant dizzy spells. The patient is on zolpidem. There is a family history of Thiago's optic neuropathy in the siblings, but no family history of Parkinson disease. PAST MEDICAL HISTORY/PAST MEDICAL ILLNESSES: 1. Parkinson disease. See above. 2. Old lacunar strokes. See above. 3. Hypertension. 4. Hypercholesterolemia. 5. HIV. ALLERGIES: He denies any allergies. SURGERIES: He denies any surgeries except for bilaterally. FAMILY HISTORY: in basically good health. REVIEW OF SYSTEMS: His appetite is decreased. PHYSICAL EXAMINATION: GENERAL: He is a well-developed, well-nourished male, lying in bed, in no acute distress. VITAL SIGNS: Temperature is 97.6 degrees, pulse is 87 and regular, respiratory rate is 20, blood pressure is 103/72. HEENT: Exam of the head reveals poor dentition. NECK: His neck is stiff in all 4 directions. Carotids are +2. NEUROLOGIC EXAMINATION: MENTAL STATUS: He is awake and alert. Judgment cannot be tested. Affect is somewhat flat. Memory, past memory is intact to his birthday. Immediate recall is 3/3 objects. Recent recall is 2/3 objects at 5 minutes. Orientation - time, he knew it is 11/07/2019, he knew it is . Place, he knew he is on the third floor of [facility]. Person, he is oriented to person. Language function, spoken speech was basically fluent. No real changes in volume. There is no paraphasias noted. He could spell world backwards and forwards without difficulty. CRANIAL NERVE EXAMINATION: CRANIAL NERVE II: There is light perception O.D. Visual donahue could not be tested. CRANIAL NERVES III, IV, AND : Extraocular motility was full with saccadic smooth pursuit. Pupils were 3 mm, round, and reactive to light. CRANIAL NERVE V: Corneal sensation and facial sensation are intact. CRANIAL NERVE VII: Facial strength is 5/5 bilaterally. CRANIAL NERVE VIII: Auditory acuity is only partially intact. CRANIAL NERVES IX AND X: Not examined. CRANIAL NERVE XI: Sternocleidomastoid strength is 5/5. CRANIAL NERVE XII: Tongue protrudes in the midline without fasciculations or atrophy. MUSCLE EXAMINATION: Muscle bulk is normal. Tone is increased in the lower extremities. Strength is probably 5/5. There was an episodic left resting tremor, which lasted a few seconds and then disappeared. REFLEXES: Trace in the upper extremities, 0 at the knees and ankles with downgoing toes and testing for Babinski response. COORDINATION: [id number], [id number] testing were intact. GAIT AND STATION: Could not be tested. SENSORY EXAMINATION: Proprioception and pinprick were normal. 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 In any way, there is no good treatment for it. For his Parkinson disease, he suddenly cannot stop his medication because this can cause the neuroleptic malignant syndrome like affect with increase in muscle tone, increased temperature, and could even be fatal. In other words, withdrawal of dopamine is the cause. The patient can probably get physical therapy as an outpatient. I do not see any muscle weakness on him. As far as his slipping and falling is concerned, Parkinson disease does cause problems with falls usually towards the end of the illness and not in the beginning. Therefore, it is not quite unusual that he could slip and fall. His proprioception is normal. He does have problems with his vision, which could add to instability. PLAN: We can discharge him on his medications and he can follow up with Dr. Tenorio, his outpatient neurologist. Thank you for this interesting case. Juancarlos Deng MD DR: MARLON JOB#: [id number] CC: MERNA
--- NOTE | 2019-11-09 15:44 | Discharge Summary ---
Discharge Summary Discharge Summary _ DATE OF ADMISSION: 10/31/2019 DATE OF DISCHARGE: 11/07/2019 DISCHARGED BY: REASON FOR ADMISSION: 64 years old male with past medical history of HIV, Parkinson disease presented with a chief complaint of multiply falls and generalized weakness. Patient had a fall from a standing position causing him to fall on his left side. Upon admission he had pain and an abrasion over the left elbow as well as an abrasion over the left restoration. CT scan of the head revealed no acute intracranial bleeding, mass-effect or edema. Old lacunar infarcts bilateral basal ganglia. X-ray of the left elbow demonstrated no acute injury. Patient subsequently admitted for further work-up and management. CONSULTANTS: neurologist Dr. Deng pulmonary/critical care Dr. Cruz ID specialist Dr. Tirado [facility] COURSE: Patient admitted. Neurology followed. Patient undergone MRI of the brain, which revealed no acute intracranial hemorrhage or ischemia. According to patient , he stopped taking his Parkinson medication a week prior to presentation to ER. 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 As per neurologist, generalized weakness that the patient complained initially , was possibly due to sudden stop of anti-Parkinson medication due to withdrawal of dopamine. No muscle weakness. Normal proprioception. Vision problems also added to his instability. Patient restarted on Sinemet . Patient was working with a physical therapist. Fall precaution maintained. Patient to follow-up as outpatient with his neurologist. Patient was continued his HIV medication Genvoya and entecavir as well as acyclovir. CD4 count above 400, viral load 20. Patient remained afebrile, no evidence of infection. Home medication continued. Supportive care provided. Bowel regimen instituted. SNF placement was highly recommended for this patient. [facility] Patient was stable for transfer. FINAL DIAGNOSES: Frequent falls Generalized weakness Parkinson disease HIV Cerebrovascular disease with history of old lacunar strokes Hypertension Hypercholesterolemia Contusion of the left elbow Contusion of the left restoration DISCHARGE MEDICATIONS: See Medication Reconciliation list. DISCHARGE INSTRUCTIONS: [facility] facility. Follow up with medical doctor at the facility. I have been assigned to dictate discharge summary for this account. I was not involved in the patient's management. Juana Claros NP Nov 09, 2019 15:44
== END 2019-11-07 14:50 | DRG 948 ==
LOC: EMR 12:28 → EDBEDREQ 13:49 → 3E 14:05
DX: R53.1 Weakness (principal); B19.10 Unspecified viral hepatitis B without hepatic coma; T44 Poisoning by, adverse effect of and underdosing of drugs primarily affecting the autonomic nervous system; H47.22 Hereditary optic atrophy; Z91.138 Patient's unintentional underdosing of medication regimen for other reason; G20 Parkinson's disease; I10 Essential (primary) hypertension; E78.00 Pure hypercholesterolemia, unspecified; Z79.82 Long term (current) use of aspirin; S00.81XA Abrasion of other part of head, initial encounter; W19.XXXA Unspecified fall, initial encounter; Z59.0 Homelessness; Z88.8 Allergy status to other drugs, medicaments and biological substances; R29.6 Repeated falls; I25.10 Atherosclerotic heart disease of native coronary artery without angina pectoris
CPT/HCPCS: 36415; 70450; 70551; 80048; 80053; 80061; 82962; 83735; 84100; 84443; 84484; 85025; 85610; 85730; 87081; 93005; 99285